=== PATIENT | female | born 1970 | race Hispanic/Latino ===

== ENCOUNTER 2017-04-27 11:36 | Emergency (ER) | payer SELFPAY ==
[2017-04-27 12:08] VITALS: BP 145/102
[2017-04-27 12:55] LABS: Basophils % (Auto) 0.9 % (0.0-1.8); Eosinophils % (Auto) 4.2 % (0.0-4.3); Hematocrit 47.4 % (30.3-42.9); Hemoglobin 15.5 gm/dl (10.1-14.3); Mean Corpuscular HGB Conc 33 % (30-34); Mean Corpuscular Hemoglobin 29 pg (28-32); Mean Corpuscular Volume 89 fl (79-97); Platelet Count 334 K/mm3 (140-440); Red Blood Count 5.35 M/mm3 (3.65-5.03); White Blood Count 11.8 K/mm3 (4.5-11.0)
--- NOTE | 2017-04-27 12:57 | Emergency Department Report ---
Entered by BASHIR SILVA, acting as scribe for GIL RODRIGUEZ PA. Chief Complaint: Chest Pain Stated Complaint: FEVER/PAIN UNDER RT RIB CAGE Time Seen by Provider: 04/27/17 12:28 - HPI History of Present Illness: Patient c/o throbbing and aching RUQ abdominal sided for 1 week. Patient states her pain radiated to right lower back 6 days ago, but states the pain hasn't radiated since. Notes Hx of similar pain, and she was diagnosed with kidney stones one time and a stomach ulcer another time. Pain is alleviated with applying pressure. Aggravated with eating. Reports fever. Denies any trauma/injury. Denies chest pain and SOB. Allergic to sulfa. - ROS Review of Systems: All systems are negative unless stated in the HPI above. - Exam Vital Signs: Vital Signs 04/27/17 12:05 Temperature 98.5 F Pulse Rate 104 H Respiratory 18 Rate Blood Pressure 145/102 O2 Sat by Pulse 100 Oximetry Physical Exam: GENERAL: Patient is alert and oriented x 3. No apparent distress, normal gait, atraumatic. LUNGS: Symmetrical with respiration. No wheezing, rales or crackles, CTAB. HEART: Regular rate and rhythm with normal S1/S2 present. No murmurs, rubs, or gallops. Abdomen: Soft. No guarding or rebound. RUQ tenderness present. MSE screening note: Focused history and physical exam performed. Due to findings the following was ordered: ED Medical Decision Making - EKG Data EKG shows normal: sinus rhythm Rate: normal - EKG Data When compared to previous EKG there are: no significant change Interpretation: no acute changes, normal EKG - Medical Decision Making Patient screened by provider in triage area. Labs and US of abdomen ordered and sent in for patient. Patient sent to be seen by MD on main ED side. ED Disposition for MSE Condition: Stable This documentation as recorded by the scribe,BASHIR SILVA,accurately reflects the service I personally performed and the decisions made by JENNIFER cleaning OYINLOLA A, PA.
[2017-04-27 13:17] LABS: Alanine Aminotransferase 31 units/L (7-56); Albumin 4.4 g/dL (3.9-5); Albumin/Globulin Ratio 1.3 %; Alkaline Phosphatase 132 units/L (35-129); BUN/Creatinine Ratio 16.66; Blood Urea Nitrogen 10 mg/dL (7-17); Calcium 9.5 mg/dL (8.4-10.2); Carbon Dioxide 24 mmol/L (22-30); Glucose 313 mg/dL (65-100); Lipase 16 units/L (13-60); Total Protein 7.7 g/dL (6.3-8.2)
[2017-04-27 13:18] LABS: Anion Gap 21 mmol/L; Chloride 95.4 mmol/L (98-107); Sodium 136 mmol/L (137-145)
--- NOTE | 2017-04-27 14:22 | Ultrasound Report ---
ULTRASOUND ABDOMEN COMPLETE INDICATION: Right upper quadrant pain. COMPARISON: March 2015. FINDINGS: Abdominal sonography demonstrates diffuse hepatic echogenic coarsening with grossly preserved contours. No definite focal suspicious lesions or biliary dilatation, to the extent assessed. Right hepatic lobe approximately 21 cm in midclavicular length. No gallstones or pericholecystic fluid. Gallbladder wall thickness is 2 mm. Mild pericholecystic fatty sparing. Common bile duct is 7 mm. Homogenous spleen, approximately 10.4 cm in length. No ascites. Imaged pancreas grossly unremarkable, though distal body and tail obscured due to bowel gas. Normal IVC and imaged abdominal aorta. No hydronephrosis. Right kidney is 11.3 x 4.7 x 5 cm with cortical thickness of 1.6 cm. Left kidney is 11.1 x 6.9 x 5.3 cm with cortical thickness of 1.6 cm. Known 5 mm nonobstructing left lower renal calculus not well appreciated sonographically. CONCLUSION: Moderate to severe fatty enlarged liver again noted, as above. Thank you for the opportunity to participate in this patient's care.
[2017-04-27 15:05] LABS: Bacteria,Urine 1+ /HPF (Negative); Mucus,Urine FEW /HPF; WBC,Urine < 1.0 /HPF (0.0-6.0)
[2017-04-27 15:13] LABS: Bilirubin,Urine Negative (Negative); Blood,Urine Moderate (Negative); Ketones,Urine Negative (Negative); Nitrite,Urine Negative (Negative); Protein,Urine <15 mg/dL mg/dL (Negative); Urobilinogen,Urine < 0.2 mg/dL (<2.0)
[2017-04-27 15:14] LABS: Leukocyte Esterase,Urine Negative (Negative)
== END 2017-04-27 20:45 | disposition left against medical advice (07) ==
LOC: ED 11:36
DX: R10.11 Right upper quadrant pain (principal); Z53.21 Procedure and treatment not carried out due to patient leaving prior to being seen by health care provider
CPT/HCPCS: 36415; 76700; 80053; 81001; 83690; 84703; 85025; 93005; 93010

== ENCOUNTER 2019-07-16 15:53 | Inpatient (IN) | payer SELFPAY ==
--- NOTE | 2019-07-16 16:09 | Event Note ---
ED Screening Note Date of service: 07/16/19 Time: 16:05 ED Screening Note: This is a 49 y.o. F. that presents to the ER with dysuria, bilateral flank pain, and urinary frequency x 1 week. Patient went to PCP last week and started on amoxicillin for UTI. Reports increasing pain and dysuria with use of antibiotics. Current smoker Reports increasing SOB for weeks. This initial assessment/diagnostic orders/clinical plan/treatment(s) is/are subject to change based on patients health status, clinical progression and re- assessment by fellow clinical providers in the ED. Further treatment and workup at subsequent clinical providers discretion. Patient/guardian urged not to elope from the ED as their condition may be serious if not clinically assessed and managed. Initial orders include: Labs, CT of abdomen, and CXR
[2019-07-16] MEDS ORDERED: SODIUM CHLORIDE 0.9% 1000 ML 1,000 ML IV ONE (16:34)
[2019-07-16] MEDS ORDERED: IPRATROPIUM/ALBUTEROL SULFATE 3 ML AMPUL.NEB IH ONE (16:46)
[2019-07-16 16:56] LABS: Basophils # (Auto) 0.2 K/mm3 (0.0-0.1); Eosinophils # (Auto) 1.4 K/mm3 (0.0-0.4); Eosinophils % (Auto) 8.1 % (0.0-4.3); Hematocrit 44.4 % (30.3-42.9); Hemoglobin 14.4 gm/dl (10.1-14.3); Lymphocytes % (Auto) 22.8 % (13.4-35.0); Mean Corpuscular HGB Conc 32 % (30-34); Mean Corpuscular Volume 91 fl (79-97); Monocytes # (Auto) 1.3 K/mm3 (0.0-0.8); Monocytes % (Auto) 7.2 % (0.0-7.3); Platelet Count 338 K/mm3 (140-440); Red Blood Count 4.88 M/mm3 (3.65-5.03); Red Cell Distribution Width 12.8 % (13.2-15.2)
--- NOTE | 2019-07-16 16:56 | Emergency Department Report ---
ED General Adult HPI - General Chief complaint: Abdominal Pain Stated complaint: STOMACH PAIN/POSSIBLE KIDNEY PAIN Time Seen by Provider: 07/16/19 16:05 Source: patient Mode of arrival: Ambulatory Limitations: No Limitations - History of Present Illness Initial comments: This is a 49-year-old female not previously diagnosed with COPD with no history of venous thromboembolism presented to the emergency Department possibly for bilateral posterior chest pain. She states that she went to her primary care physician who prescribed amoxicillin for a UTI. However, she describes the pain as being quite superior to the flank area in the bilateral lower thoracic region. She states that she has been coughing very chronically. She admits to dyspnea on exertion. She states that she works at [employer]. She states she has been working recently. She is a daily and heavy smoker. He does complain of some urinary frequency and she states which has gotten worse since she took the amoxicillin. She also states that she is a type II diabetic. The doctor did a Accu-Chek test which she reports to be less than 200 at the office last week. She did notice prior to her arrival and sometimes in the past that her lips were blue. She doesn't really report any acute respiratory compromise. Patient lists no history of cardiac problems. She recalls that she was checked for blood clots in her legs once presumably with the Doppler. This test was negative. She doesn't report a family history of venous thromboembolic embolism either. -: Gradual, month(s) (dyspnea on exertion and chronic cough for months if not years) Location: chest (posterior thoracic pain) Radiation: non-radiation Severity scale (0 -10): 8 Quality: aching Consistency: intermittent Improves with: none Associated Symptoms: other (urinary frequency) Treatments Prior to Arrival: none - Related Data Home Medications Medication Instructions Recorded Confirmed Last Taken Citalopram [Celexa] 40 mg PO QDAY 11/26/13 07/16/19 11/26/13 Oxycodone HCl/Acetaminophen 10 mg PO PRN PRN 11/26/13 07/16/19 11/26/13 [Percocet 10/325 mg] clonazePAM [KlonoPIN] 0.5 mg PO BID PRN 11/26/13 07/16/19 11/26/13 Previous Rx's Medication Instructions Recorded Last Taken Type Oxycodone HCl/Acetaminophen 1 each PO Q6HR PRN #20 tablet 03/25/15 Unknown Rx [Percocet 10-325 mg] Allergies Allergy/AdvReac Type Severity Reaction Status Date / Time ciprofloxacin Allergy Unknown Verified 07/16/19 16:08 Sulfa (Sulfonamide Allergy Hives Verified 07/16/19 16:08 Antibiotics) ED Review of Systems ROS: Stated complaint: STOMACH PAIN/POSSIBLE KIDNEY PAIN Other details as noted in HPI Constitutional: denies: chills, fever Eyes: denies: eye pain, eye discharge, vision change ENT: denies: ear pain, throat pain Respiratory: cough, shortness of breath. denies: wheezing Cardiovascular: as per HPI, chest pain. denies: palpitations Endocrine: no symptoms reported Gastrointestinal: denies: abdominal pain, nausea, diarrhea Genitourinary: denies: urgency, dysuria, discharge Musculoskeletal: denies: back pain, joint swelling, arthralgia Skin: denies: rash, lesions Neurological: denies: headache, weakness, paresthesias Psychiatric: denies: anxiety, depression Hematological/Lymphatic: denies: easy bleeding, easy bruising ED Past Medical Hx - Past Medical History Hx Hypertension: Yes Hx Diabetes: Yes Hx Kidney Stones: Yes Hx Psychiatric Treatment: Yes (depression) Additional medical history: kidney stones - Surgical History Additional Surgical History: brain surgery 1971 after trauma. sacral screw placed 2006 - Social History Smoking Status: Current Every Day Smoker Substance Use Type: None - Medications Home Medications: Home Medications Medication Instructions Recorded Confirmed Last Taken Type Citalopram [Celexa] 40 mg PO QDAY 11/26/13 07/16/19 11/26/13 History Oxycodone HCl/Acetaminophen 10 mg PO PRN PRN 11/26/13 07/16/19 11/26/13 History [Percocet 10/325 mg] clonazePAM [KlonoPIN] 0.5 mg PO BID PRN 11/26/13 07/16/19 11/26/13 History Oxycodone HCl/Acetaminophen 1 each PO Q6HR PRN #20 tablet 03/25/15 07/16/19 Unknown Rx [Percocet 10-325 mg] ED Physical Exam - General Limitations: No Limitations General appearance: alert, in no apparent distress, other (initially dusky) - Head Head exam: Present: atraumatic, normocephalic - Eye Eye exam: Present: normal appearance. Absent: scleral icterus - ENT ENT exam: Present: mucous membranes moist - Neck Neck exam: Present: normal inspection - Respiratory Respiratory exam: Present: rales (basilar rales noted left greater than right). Absent: respiratory distress - Cardiovascular Cardiovascular Exam: Present: normal rhythm, tachycardia. Absent: systolic murmur, diastolic murmur, rubs, gallop - GI/Abdominal GI/Abdominal exam: Present: soft, normal bowel sounds. Absent: distended, tenderness, guarding, rebound, rigid - Extremities Exam Extremities exam: Present: normal inspection, normal capillary refill. Absent: pedal edema, joint swelling, calf tenderness - Back Exam Back exam: Present: normal inspection - Neurological Exam Neurological exam: Present: alert, oriented X3, CN II-XII intact. Absent: motor sensory deficit - Psychiatric Psychiatric exam: Present: normal affect, normal mood - Skin Skin exam: Present: warm, dry, intact, normal color. Absent: rash ED Course Vital Signs 07/16/19 07/16/19 07/16/19 16:05 17:19 19:15 Temperature 98.2 F 98.2 F Pulse Rate 118 H 89 Pulse Rate [ 74 Right Lower Lobe] Pulse Rate [ 64 Right Middle Lobe] Respiratory 22 17 Rate Respiratory 16 Rate [Right Lower Lobe] Respiratory 16 Rate [Right Middle Lobe] Blood Pressure 153/95 155/95 [right] O2 Sat by Pulse 85 92 Oximetry 07/16/19 19:37 Temperature Pulse Rate Pulse Rate [ Right Lower Lobe] Pulse Rate [ Right Middle Lobe] Respiratory 16 Rate Respiratory Rate [Right Lower Lobe] Respiratory Rate [Right Middle Lobe] Blood Pressure [right] O2 Sat by Pulse Oximetry - Reevaluation(s) Reevaluation #1: Patient was referred to the hospitalist staff for further care and evaluation. 07/16/19 19:47 ED Medical Decision Making - Lab Data Result diagrams: 07/16/19 16:38 07/16/19 16:38 Laboratory Results - last 24 hr 07/16/19 07/16/19 07/16/19 16:30 16:38 16:38 WBC 17.7 H RBC 4.88 Hgb 14.4 H Hct 44.4 H MCV 91 MCH 30 MCHC 32 RDW 12.8 L Plt Count 338 Lymph % (Auto) 22.8 [place] % (Auto) 7.2 Eos % (Auto) 8.1 H Baso % (Auto) 1.0 Lymph # 4.0 Redwood # 1.3 H Eos # 1.4 H Baso # 0.2 H Seg Neutrophils % 60.9 Seg Neutrophils # 10.8 H PT 12.1 L INR 0.92 APTT 24.2 POC Glucose 259 H Laboratory Results - last 24 hr 07/16/19 07/16/19 07/16/19 16:30 16:38 16:38 WBC 17.7 H RBC 4.88 Hgb 14.4 H Hct 44.4 H MCV 91 MCH 30 MCHC 32 RDW 12.8 L Plt Count 338 Lymph % (Auto) 22.8 [place] % (Auto) 7.2 Eos % (Auto) 8.1 H Baso % (Auto) 1.0 Lymph # 4.0 [place] # 1.3 H Eos # 1.4 H Baso # 0.2 H Seg Neutrophils % 60.9 Seg Neutrophils # 10.8 H PT INR APTT POC ABG pH POC ABG pCO2 POC ABG pO2 POC ABG HCO3 POC ABG Total CO2 POC ABG O2 Sat POC ABG Base Excess VBG pH FiO2 Sodium Potassium Chloride Carbon Dioxide Anion Gap BUN Creatinine Estimated GFR BUN/Creatinine Ratio Glucose POC Glucose 259 H Lactic Acid Calcium Total Bilirubin Direct Bilirubin Indirect Bilirubin AST ALT Alkaline Phosphatase Total Protein Albumin Albumin/Globulin Ratio Lipase 24 07/16/19 07/16/19 07/16/19 16:38 16:38 16:38 WBC RBC Hgb Hct MCV MCH MCHC RDW Plt Count Lymph % (Auto) Redwood % (Auto) Eos % (Auto) Baso % (Auto) Lymph # Red[place] # Eos # Baso # Seg Neutrophils % Seg Neutrophils # PT 12.1 L INR 0.92 APTT 24.2 POC ABG pH POC ABG pCO2 POC ABG pO2 POC ABG HCO3 POC ABG Total CO2 POC ABG O2 Sat POC ABG Base Excess VBG pH FiO2 Sodium 136 L Potassium 4.5 Chloride 100.7 Carbon Dioxide 21 L Anion Gap 19 BUN 21 H Creatinine 0.9 Estimated GFR > 60 BUN/Creatinine Ratio 23 Glucose 258 H POC Glucose Lactic Acid 2.10 H* Calcium 10.0 Total Bilirubin 0.30 Direct Bilirubin < 0.2 Indirect Bilirubin 0.1 AST 11 ALT 13 Alkaline Phosphatase 143 H Total Protein 7.8 Albumin 4.4 Albumin/Globulin Ratio 1.3 Lipase 07/16/19 07/16/19 16:38 17:44 WBC RBC Hgb Hct MCV MCH MCHC RDW Plt Count Lymph % (Auto) Red[place] % (Auto) Eos % (Auto) Baso % (Auto) Lymph # [place] # Eos # Baso # Seg Neutrophils % Seg Neutrophils # PT INR APTT POC ABG pH 7.398 POC ABG pCO2 34.6 L POC ABG pO2 167 H POC ABG HCO3 21.3 POC ABG Total CO2 22 POC ABG O2 Sat 100 POC ABG Base Excess -3 VBG pH 7.456 H FiO2 40 Sodium Potassium Chloride Carbon Dioxide Anion Gap BUN Creatinine Estimated GFR BUN/Creatinine Ratio Glucose POC Glucose Lactic Acid Calcium Total Bilirubin Direct Bilirubin Indirect Bilirubin AST ALT Alkaline Phosphatase Total Protein Albumin Albumin/Globulin Ratio Lipase - EKG Data -: EKG Interpreted by Me EKG shows normal: sinus rhythm, axis (axis deviation), intervals, QRS complexes, ST-T waves Rate: normal - EKG Data Interpretation: other (somewhat low voltage) - Radiology Data Radiology results: report reviewed, image reviewed CTA showed no evidence of pulmonary embolism or acute infiltrate Critical Care Time: Yes Critical care time in (mins) excluding proc time.: 60 Critical care attestation.: If time is entered above; I have spent that time in minutes in the direct care of this critically ill patient, excluding procedure time. ED Disposition Clinical Impression: Respiratory failure with hypoxia Qualifiers: Chronicity: acute on chronic Qualified Code(s): J96.21 - Acute and chronic respiratory failure with hypoxia COPD (chronic obstructive pulmonary disease) Qualifiers: COPD type: unspecified COPD Qualified Code(s): J44.9 - Chronic obstructive pulmonary disease, unspecified Disposition: OP ADMIT IP TO THIS HOSP Is pt being admited?: Yes Does the pt Need Aspirin: Yes Condition: Stable Time of Disposition: 19:48
--- NOTE | 2019-07-16 16:59 | XRay Report ---
CHEST 1 VIEW 4:33 PM INDICATION / CLINICAL INFORMATION: SOB. COMPARISON: 11/26/2013. FINDINGS: SUPPORT DEVICES: None. HEART / MEDIASTINUM: The heart size and pulmonary vasculature are normal. The aorta is normal in monserrat eran. LUNGS / PLEURA: No significant pulmonary or pleural abnormality. No pneumothorax. ADDITIONAL FINDINGS: No significant additional findings. IMPRESSION: No acute abnormality or significant change. Signer Name: Ben Marquez MD Signed: 07/16/2019 4:55 PM Workstation Name: [id number]
[2019-07-16 17:06] LABS: INR 0.92 (0.87-1.13)
[2019-07-16 17:07] LABS: Partial Thromboplastin Time 24.2 Sec. (24.2-36.6)
[2019-07-16 17:30] LABS: Alanine Aminotransferase 13 units/L (7-56); Albumin 4.4 g/dL (3.9-5); BUN/Creatinine Ratio 23; Blood Urea Nitrogen 21 mg/dL (7-17); Hemolysis Index 13
[2019-07-16 17:47] LABS: Bilirubin,Direct < 0.2 mg/dL (0-0.2)
[2019-07-16] MEDS ORDERED: cefTRIAXone/NS 1 GM/50 ML 1 GM/50 ML BAG IV ONE (18:10)
[2019-07-16] MEDS ORDERED: ALBUTEROL 2.5 MG/3 ML NEBU IH PRN (18:21)
[2019-07-16] MEDS ORDERED: ACETAMINOPHEN 325 MG TAB PO PRN (18:21)
[2019-07-16] MEDS ORDERED: ONDANSETRON 4 MG/2 ML INJ IV PRN (18:21)
[2019-07-16] MEDS ORDERED: DEXTROSE 50% IN WATER (25GM) 50 ML SYRINGE IV PRN (18:25)
--- NOTE | 2019-07-16 18:27 | Cat Scan Report ---
CT angiography of the chest with intravenous contrast and multiplanar MIP reconstructions INDICATION / CLINICAL INFORMATION: Chest pain and hypoxia. TECHNIQUE: Axial CT images were obtained after injection of 100 cc Omnipaque 350 IV contrast using CTA protocol. 3 plane MIP / 3D reconstructions were produced. All CT scans at this location are performed using CT dose reduction for ALARA by means of automated exposure control. COMPARISON: None available. FINDINGS: There is good opacification of the pulmonary arterial system bilaterally without intraluminal filling defect to suggest acute PTE. The thoracic aorta is normal in caliber without dissection. No coronary artery calcification is seen. The tracheobronchial tree is normal. There is mild right basilar subsegmental atelectasis/dependent a telectasis. The lungs are otherwise clear. There is no evidence of adenopathy or effusion. There is mild benign-appearing low density nodularity/hyperplasia involving the adrenal glands. The v isualized upper abdomen is otherwise normal. No acute osseous abnormality is identified. IMPRESSION: No evidence of acute PTE. Signer Name: Ben Marquez MD Signed: 07/16/2019 6:23 PM Workstation Name: [id number]
[2019-07-16] MEDS ORDERED: clonazePAM 0.5 MG TAB PO PRN (18:28)
[2019-07-16] MEDS ORDERED: ACETAMINOPHEN PO PRN (18:29)
[2019-07-16] MEDS ORDERED: OXYCODONE HCL PO PRN (18:29)
[2019-07-16] MEDS ORDERED: AZITHROMYCIN 500 MG in SODIUM CHLORIDE 0.9% 250ML 250 ML IV ONE (18:30)
[2019-07-16 18:48] LABS: Bilirubin,Urine NEG (Negative); Blood,Urine SM (Negative); Color,Urine Amber (Yellow)
[2019-07-16] MEDS ORDERED: SODIUM CHLORIDE 0.9% 1000 ML 1,000 ML ONE (19:27)
[2019-07-16] MEDS ORDERED: oxyCODONE /ACETAMINOPHEN 5-325MG TAB ONE (19:28)
[2019-07-16] MEDS ORDERED: ONDANSETRON 4 MG/2 ML INJ ONE (19:28)
[2019-07-16] MEDS: SODIUM CHLORIDE 0.9% 1000 ML 1,000 ML IV SCH (19:35)
[2019-07-16] MEDS: oxyCODONE /ACETAMINOPHEN 5-325MG TAB PO PRN (19:37)
--- NOTE | 2019-07-16 19:38 | History and Physical Report ---
History of Present Illness Date of examination: 07/16/19 Date of admission: 07/16/2019 Chief complaint: Shortness of breath and right flank pain History of present illness: 49-year-old female who is an ongoing smoker with history of hypertension noncompliant with meds, diabetes, kidney stones, depression, brain surgery who presents to [facility] ED with complaints of chest pain, dyspnea on exertion , cough with thick sputum production, and right flank pain. Patient states that she was recently diagnosed with urinary tract infection and her PCP prescribed amoxicillin and she has completed treatment. However she continues to have of urinary frequency, occasional dysuria, and right flank pain. She has been taking nioe-hoh-ektwarb AZO for treatment of her symptoms with minimal relief. She admits to being a chain smoker and having a chronic intermittent cough. Over the past week her cough has become more frequent with thick sputum production. She thinks that the cough is contributing to her chest pain. She is also experiencing dyspnea with exertion and wheezing. She denies history of COPD/asthma, or pulmonary workup. 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 sacral screw placed 2006) Social history: , Lives alone, smoking (chain smoker smokes 1-1.5 pack per day) Family history: other (mother COPD, father COPD) Medications and Allergies Allergies Allergy/AdvReac Type Severity Reaction Status Date / Time ciprofloxacin Allergy Unknown Verified 07/16/19 16:08 Sulfa (Sulfonamide Allergy Hives Verified 07/16/19 16:08 Antibiotics) Home Medications Medication Instructions Recorded Confirmed Last Taken Type Citalopram [Celexa] 40 mg PO QDAY 11/26/13 07/16/19 11/26/13 History Oxycodone HCl/Acetaminophen 10 mg PO PRN PRN 11/26/13 07/16/19 11/26/13 History [Percocet 10/325 mg] clonazePAM [KlonoPIN] 0.5 mg PO BID PRN 11/26/13 07/16/19 11/26/13 History Oxycodone HCl/Acetaminophen 1 each PO Q6HR PRN #20 tablet 03/25/15 07/16/19 Unknown Rx [Percocet 10-325 mg] Active Meds: Active Medications Acetaminophen (Tylenol) 650 mg PO Q4H PRN PRN Reason: Pain MILD(1-3)/Fever >100.5/TAVARES Albuterol (Proventil) 2.5 mg IH Q3HRT PRN PRN Reason: Shortness Of Breath Albuterol/Ipratropium (Duoneb *Not For Prn Use*) 1 ampul IH Q6HRT [facility] Budesonide (Pulmicort) 0.5 mg IH Q12HRT [facility] Citalopram Hydrobromide (Celexa) 40 mg PO QDAY [place] Clonazepam (Klonopin) 0.5 mg PO BID PRN PRN Reason: Anxiety Dextrose (D50w (25gm) Syringe) 50 ml IV PRN PRN PRN Reason: Hypoglycemia Docusate Sodium (Colace) 100 mg PO BID [facility] Enoxaparin Sodium (Lovenox) 40 mg SUB-Q QDAY [facility] Guaifenesin (Mucinex Er) 600 mg PO BID [facility] Sodium Chloride (Nacl 0.9% 1000 Ml) 1,000 mls @ 100 mls/hr IV DIRECT [place] Azithromycin 500 mg/ Sodium (Chloride) 250 mls @ 250 mls/hr IV Q24HR [facility]; Protocol Stop: 07/20/19 09:59 Ceftriaxone Sodium (Rocephin/Ns 1 Gm/50 Ml) 1 gm in 50 mls @ 100 mls/hr IV Q24HR [facility]; Protocol Insulin Human Lispro (Humalog) 0 unit SUB-Q ACHS [facility]; Protocol Methylprednisolone Sodium Succinate (Solu-Medrol) 60 mg IV Q8HR [facility] Nicotine (Habitrol) 14 mg TD QDAY [facility] Ondansetron HCl (Zofran) 4 mg IV Q6H PRN PRN Reason: Nausea And Vomiting Oxycodone HCl (Roxicodone) 5 mg PO Q6H PRN PRN Reason: Pain , Severe (7-10) Oxycodone/Acetaminophen (Percocet 5/325) 1 tab PO Q6H PRN PRN Reason: Pain , Severe (7-10) Sodium Chloride (Sodium Chloride Flush Syringe 10 Ml) 10 ml IV BID [facility] Sodium Chloride (Sodium Chloride Flush Syringe 10 Ml) 10 ml IV PRN PRN PRN Reason: LINE FLUSH Review of Systems All systems: negative Cardiovascular: chest pain, shortness of breath Respiratory: cough with sputum, wheezing Genitourinary Female: flank pain, dysuria, urinary frequency Exam - Physical Exam Narrative exam: Physical exam General appearance: Present: Mild distress, alert and oriented 3, well developed, pleasant, adult female - EENT Eyes: Present: PERRL, EOM intact, ENT: hearing intact, normal dentition - Neck Neck: Present: supple, normal ROM - Respiratory Respiratory effort: Slightly labored, on Venti mask Respiratory: Diminished bases - Cardiovascular Heart rate: 118 (bpm) Rhythm: ST Heart Sounds: Present: S1, S2 - Extremities Extremities: no ischemia, pulses intact, - Peripheral Assessment Peripheral Pulses: within normal limits - Abdominal General gastrointestinal: Soft, non-tender, normal bowel sounds - Integumentary Integumentary: Present: warm, dry, - Musculoskeletal Musculoskeletal: Able to move all extremities -Neurological Neurological: CN II-XII grossly intact - Psychiatric Psychiatric: cooperative - Constitutional Vitals: Temp Pulse Resp BP Pulse Ox 98.2 F 89 17 155/95 92 07/16/19 19:15 07/16/19 19:15 07/16/19 19:15 07/16/19 19:15 07/16/19 19:15 Results - Labs CBC & Chem 7: 07/16/19 16:38 07/16/19 16:38 Labs: Laboratory Last Values WBC 17.7 K/mm3 (4.5-11.0) H 07/16/19 16:38 RBC 4.88 M/mm3 (3.65-5.03) 07/16/19 16:38 Hgb 14.4 gm/dl (10.1-14.3) H 07/16/19 16:38 Hct 44.4 % (30.3-42.9) H 07/16/19 16:38 MCV 91 fl (79-97) 07/16/19 16:38 MCH 30 pg (28-32) 07/16/19 16:38 MCHC 32 % (30-34) 07/16/19 16:38 RDW 12.8 % (13.2-15.2) L 07/16/19 16:38 Plt Count 338 K/mm3 (140-440) 07/16/19 16:38 Lymph % (Auto) 22.8 % (13.4-35.0) 07/16/19 16:38 [place] % (Auto) 7.2 % (0.0-7.3) 07/16/19 16:38 Eos % (Auto) 8.1 % (0.0-4.3) H 07/16/19 16:38 Baso % (Auto) 1.0 % (0.0-1.8) 07/16/19 16:38 Lymph # 4.0 K/mm3 (1.2-5.4) 07/16/19 16:38 [place] # 1.3 K/mm3 (0.0-0.8) H 07/16/19 16:38 Eos # 1.4 K/mm3 (0.0-0.4) H 07/16/19 16:38 Baso # 0.2 K/mm3 (0.0-0.1) H 07/16/19 16:38 Seg Neutrophils % 60.9 % (40.0-70.0) 07/16/19 16:38 Seg Neutrophils # 10.8 K/mm3 (1.8-7.7) H 07/16/19 16:38 PT 12.1 Sec. (12.2-14.9) L 07/16/19 16:38 INR 0.92 (0.87-1.13) 07/16/19 16:38 APTT 24.2 Sec. (24.2-36.6) 07/16/19 16:38 POC ABG pH 7.398 (7.35-7.45) 07/16/19 17:44 POC ABG pCO2 34.6 (35-45) L 07/16/19 17:44 POC ABG pO2 167 (80-105) H 07/16/19 17:44 POC ABG HCO3 21.3 (22-26 mml/L) 07/16/19 17:44 POC ABG Total CO2 22 (23-27mmol/L) 07/16/19 17:44 POC ABG O2 Sat 100 07/16/19 17:44 POC ABG Base Excess -3 ((-2) - (+3)mmol/L) 07/16/19 17:44 VBG pH 7.456 (7.320-7.420) H 07/16/19 16:38 40 % 07/16/19 17:44 Sodium 136 mmol/L (137-145) L 07/16/19 16:38 Potassium 4.5 mmol/L (3.6-5.0) 07/16/19 16:38 Chloride 100.7 mmol/L (98-107) 07/16/19 16:38 Carbon Dioxide 21 mmol/L (22-30) L 07/16/19 16:38 19 mmol/L 07/16/19 16:38 BUN 21 mg/dL (7-17) H 07/16/19 16:38 0.9 mg/dL (0.7-1.2) 07/16/19 16:38 Estimated GFR > 60 ml/min 07/16/19 16:38 23 % 07/16/19 16:38 Glucose 258 mg/dL (65-100) H 07/16/19 16:38 POC Glucose 259 (70-105) H 07/16/19 16:30 Lactic Acid 2.10 mmol/L (0.7-2.0) H* 07/16/19 18:02 Calcium 10.0 mg/dL (8.4-10.2) 07/16/19 16:38 0.30 mg/dL (0.1-1.2) 07/16/19 16:38 < 0.2 mg/dL (0-0.2) 07/16/19 16:38 0.1 mg/dL 07/16/19 16:38 AST 11 units/L (5-40) 07/16/19 16:38 ALT 13 units/L (7-56) 07/16/19 16:38 143 units/L (35-129) H 07/16/19 16:38 27 units/L (30-135) L 07/16/19 16:57 CK-MB (CK-2) 1.0 ng/mL (0.0-4.0) 07/16/19 16:57 CK-MB (CK-2) Rel Index 3.7 (0-4) 07/16/19 16:57 NT-Pro-B Natriuret Pep 11.03 pg/mL (0-900) 07/16/19 16:57 7.8 g/dL (6.3-8.2) 07/16/19 16:38 4.4 g/dL (3.9-5) 07/16/19 16:38 1.3 % 07/16/19 16:38 24 units/L (13-60) 07/16/19 16:38 Mere (Yellow) 07/16/19 18:24 Clear (Clear) 07/16/19 18:24 5.0 (5.0-7.0) 07/16/19 18:24 Ur Specific [place] 1.014 (1.003-1.030) 07/16/19 18:24 30 mg/dl mg/dL (Negative) 07/16/19 18:24 Neg mg/dL (Negative) 07/16/19 18:24 Neg mg/dL (Negative) 07/16/19 18:24 Sm (Negative) 07/16/19 18:24 Pos (Negative) 07/16/19 18:24 Neg (Negative) 07/16/19 18:24 4.0 mg/dL (<2.0) 07/16/19 18:24 Ur Leukocyte Esterase Neg (Negative) 07/16/19 18:24 4.0 /HPF (0.0-6.0) 07/16/19 18:24 4.0 /HPF (0.0-6.0) 07/16/19 18:24 U Epithel Cells (Auto) 3.0 /HPF (0-13.0) 07/16/19 18:24 - Imaging and Cardiology Imaging and Cardiology: CXR: FINDINGS: SUPPORT DEVICES: None. HEART / MEDIASTINUM: The heart size and pulmonary vasculature are normal. The aorta is normal in caliber. LUNGS / PLEURA: No significant pulmonary or pleural abnormality. No pneumothorax. ADDITIONAL FINDINGS: No significant additional findings. IMPRESSION: No acute abnormality or significant change. CTangio Chest: FINDINGS: There is good opacification of the pulmonary arterial system bilaterally without intraluminal filling defect to suggest acute PTE. The thoracic aorta is normal in caliber without dissection. No coronary artery calcification is seen. The tracheobronchial tree is normal. There is mild right basilar subsegmental atelectasis/dependent atelectasis. The lungs are otherwise clear. There is no evidence of adenopathy or effusion. There is mild benign-appearing low density nodularity/hyperplasia involving the adrenal glands. The visualized upper abdomen is otherwise normal. No acute osseous abnormality is identified. IMPRESSION: No evidence of acute PTE. Assessment and Plan Assessment and plan: 49-year-old female who is an ongoing smoker with history of hypertension noncompliant with meds, diabetes, kidney stones, depression, brain surgery who presents to [facility] ET with complaints of chest pain, shortness of breath on exertion , cough with thick sputum production, and right flank pain. Pt states that she had BLE Doppler in the past to check for DVT and it was negative. Given pt's complaints and history CT angio chest was done and it was negative for PE. CXR was negative for acute pulmonary abnormalities. Acute exacerbation COPD -New diagnosis -Scheduled DuoNebs and Pulmicort, and Albuterol PRN -IV Systemic steriods -Mucinex -On IV ABX -Will require outpatient follow-up with supervisor [facility] for PFTs and COPD maintenance Acute hypoxic respiratory failure -No Baseline home oxygen requirements -Currently on Ventimask FiO2 40%, 15 LPM -Monitor saturations -Monitor CO2 -Continue supplemental oxygen wean as tolerated Suspicion of Kidney stone -Patient has history of kidney stone -Complains of right flank pain -Receiving IVF -Continue supportive care -If no improvement in symptoms after 24 hours of hydration may consider nephrology consult History of UTI -Previously treated with azithromycin as outpatient -UA negative -Urine culture pending -On IV abx HTN -Noncompliant with medications due to lack of insurance -Monitor BP -Start Norvac 10mg -IV hydralazine when necessary Lactic Acidosis -lactic acid on admission 2.10 -On IV ABX -Receiving IVF -Continue to monitor DM2 -With hyperglycemia -BG on admission 258 -HgbA1c pending -SSI coverage and scheduled Lantus Tobacco abuse -Smokes 1-1.5 pack per day -Counseled for cessation -Nicotine patch when necessary DVT PPX -on Lovenox Advance Directives: No VTE prophylaxis?: Chemical Plan of care discussed with patient/family: Yes
[2019-07-16] MEDS ORDERED: hydrALAZINE 20 MG/1 ML INJ IV PRN (19:49)
[2019-07-16] MEDS: NICOTINE 14 MG/24 HR PATCH TD SCH (19:58)
[2019-07-16] MEDS ORDERED: amLODIPine 10 MG TAB PO ONE (20:00)
[2019-07-16] MEDS ORDERED: amLODIPine 10 MG TAB ONE (20:04)
[2019-07-16] MEDS ORDERED: ASPIRIN 325 MG TAB ONE (20:04)
[2019-07-16] MEDS: ASPIRIN 325 MG TAB PO SCH (20:05)
[2019-07-16] MEDS: BUDESONIDE 0.5 MG/2 ML NEBU IH SCH (20:53)
[2019-07-16] MEDS: IPRATROPIUM/ALBUTEROL SULFATE 3 ML AMPUL.NEB IH SCH (20:53)
[2019-07-16] MEDS: methylPREDNISolone Sod Succinate 125 MG/2 ML INJ IV SCH (22:47)
[2019-07-16] MEDS: DOCUSATE SODIUM 100 MG CAP PO SCH (22:47)
[2019-07-16] MEDS: guaiFENesin ER 600 MG TAB PO SCH (22:47)
[2019-07-16] MEDS: PRAVASTATIN 20 MG TAB PO SCH (22:47)
[2019-07-16] MEDS: INSULIN GLARGINE 100 UNITS/ML SUB-Q SCH (22:48)
[2019-07-16] MEDS: INSULIN LISPRO 100 UNIT/ML SUB-Q SCH (22:49)
[2019-07-16] MEDS: MORPHINE 2 MG/1 ML INJ IV PRN (23:18)
[2019-07-17] MEDS: IPRATROPIUM/ALBUTEROL SULFATE 3 ML AMPUL.NEB IH SCH ×4 (03:09→19:46)
[2019-07-17] MEDS: SODIUM CHLORIDE 0.9% 1000 ML 1,000 ML IV SCH ×2 (05:24→17:38)
[2019-07-17] MEDS: MORPHINE 2 MG/1 ML INJ IV PRN (05:25)
[2019-07-17] MEDS: methylPREDNISolone Sod Succinate 125 MG/2 ML INJ IV SCH ×3 (05:25→21:52)
--- NOTE | 2019-07-17 06:58 | Progress Note ---
Assessment and Plan Assessment and plan: Patient is a 49-year-old woman with a history of tobacco dependency, hypertension noncompliant with meds, diabetes, kidney stones, depression and brain surgery who presented to [facility] ED with chest pains, dyspnea on exertion, cough with thick sputum production, and right flank pain. Patient states that she was recently diagnosed with urinary tract infection and her PCP prescribed amoxicillin and she has completed treatment. However she continues to have of urinary frequency, occasional dysuria, and right flank pain. She has been taking [id number] AZO for treatment of her symptoms with minimal relief. She admits to being a chain smoker and having a chronic intermittent cough. Over the past week her cough has become more frequent with thick sputum production. She thinks that the cough is contributing to her chest pain. She is also experiencing dyspnea with exertion and wheezing. She denies history of COPD/asthma, or pulmonary workup. * pCXR IMPRESSION: No acute abnormality or significant change. * CTangio Chest IMPRESSION: No evidence of acute PTE. suspected Acute exacerbation COPD vs Asthmatic bronchitis -New diagnosis -Scheduled DuoNebs and Pulmicort, and Albuterol PRN -IV Systemic steriods -Mucinex -On IV ABX -Will require outpatient follow-up with spin instructor for PFTs and COPD official dx Acute hypoxic respiratory failure -No Baseline home oxygen requirements -Currently on Ventimask FiO2 40%, 15 LPM -Monitor saturations -Monitor CO2 -Continue supplemental oxygen wean as tolerated Suspicion of Kidney stone -get CT a/p -Patient has history of kidney stone -Complains of right flank pain -Receiving IVF -Continue supportive care -If no improvement in symptoms after 24 hours of hydration may consider Urology consult History of UTI -Previously treated with azithromycin as outpatient -UA negative -Urine culture pending -On IV abx HTN -Noncompliant with medications due to lack of insurance -Monitor BP -Start Norvac 10mg ([facility]) -IV hydralazine when necessary Lactic Acidosis -lactic acid on admission 2.10 -On IV ABX -Receiving IVF -Continue to monitor DM2 -With hyperglycemia -BG on admission 258 -HgbA1c 8.1 -SSI coverage and scheduled Lantus Tobacco abuse -Smokes 1-1.5 pack per day -Counseled for cessation 3-10 minutes done -Nicotine patch when necessary DVT PPX -on Lovenox History Interval history: Patient was seen and examined. Follow-up on current diagnosis COPD vs Asthmatic bronchitis. No overnight events reported to me. Patient denies any nausea/vomiting or severe headaches. Imaging, nursing note, chart, labs and old chart reviewed. Discussed with patient. Hospitalist Physical - Physical exam Narrative exam: Gen: WDWN, NAD, Awake, Alert, Orientated HEENT: NCAT, EOMI, PERRL, OP Clear Neck: supple, no adenopathy, no thyromegaly, no JVD CVS/Heart: RRR, normal S1S2, pulses present bilaterally Chest/Lungs: diminished and exp wheezing bilateral, Symmetrical chest expansion, good air entry bilaterally GI/Abdomen: soft, NTND, good bowel sounds, no guarding or rebound /Bladder: no suprapubic tenderness, no CVA or paraspinal tenderness Extermity/Skin: no c/c/e, no obvious rash MSK: FROM x 4 Neuro: CN 2-12 grossly intact, no new focal deficits Psych: calm - Constitutional Vitals: Temp Pulse Resp BP Pulse Ox 98.4 F 98 H 18 102/57 91 07/17/19 04:45 07/17/19 04:45 07/17/19 05:55 07/17/19 04:45 07/17/19 04:45 Results - Labs CBC & Chem 7: 07/17/19 07:11 07/17/19 07:11 Labs: Laboratory Last Values WBC 17.7 K/mm3 (4.5-11.0) H 07/16/19 16:38 RBC 4.88 M/mm3 (3.65-5.03) 07/16/19 16:38 Hgb 14.4 gm/dl (10.1-14.3) H 07/16/19 16:38 Hct 44.4 % (30.3-42.9) H 07/16/19 16:38 MCV 91 fl (79-97) 07/16/19 16:38 MCH 30 pg (28-32) 07/16/19 16:38 MCHC 32 % (30-34) 07/16/19 16:38 RDW 12.8 % (13.2-15.2) L 07/16/19 16:38 Plt Count 338 K/mm3 (140-440) 07/16/19 16:38 Lymph % (Auto) 22.8 % (13.4-35.0) 07/16/19 16:38 [place] % (Auto) 7.2 % (0.0-7.3) 07/16/19 16:38 Eos % (Auto) 8.1 % (0.0-4.3) H 07/16/19 16:38 Baso % (Auto) 1.0 % (0.0-1.8) 07/16/19 16:38 Lymph # 4.0 K/mm3 (1.2-5.4) 07/16/19 16:38 [place] # 1.3 K/mm3 (0.0-0.8) H 07/16/19 16:38 Eos # 1.4 K/mm3 (0.0-0.4) H 07/16/19 16:38 Baso # 0.2 K/mm3 (0.0-0.1) H 07/16/19 16:38 Seg Neutrophils % 60.9 % (40.0-70.0) 07/16/19 16:38 Seg Neutrophils # 10.8 K/mm3 (1.8-7.7) H 07/16/19 16:38 PT 12.1 Sec. (12.2-14.9) L 07/16/19 16:38 INR 0.92 (0.87-1.13) 07/16/19 16:38 APTT 24.2 Sec. (24.2-36.6) 07/16/19 16:38 POC ABG pH 7.398 (7.35-7.45) 07/16/19 17:44 POC ABG pCO2 34.6 (35-45) L 07/16/19 17:44 POC ABG pO2 167 (80-105) H 07/16/19 17:44 POC ABG HCO3 21.3 (22-26 mml/L) 07/16/19 17:44 POC ABG Total CO2 22 (23-27mmol/L) 07/16/19 17:44 POC ABG O2 Sat 100 07/16/19 17:44 POC ABG Base Excess -3 ((-2) - (+3)mmol/L) 07/16/19 17:44 VBG pH 7.456 (7.320-7.420) H 07/16/19 16:38 40 % 07/16/19 17:44 Sodium 136 mmol/L (137-145) L 07/16/19 16:38 Potassium 4.5 mmol/L (3.6-5.0) 07/16/19 16:38 Chloride 100.7 mmol/L (98-107) 07/16/19 16:38 Carbon Dioxide 21 mmol/L (22-30) L 07/16/19 16:38 19 mmol/L 07/16/19 16:38 BUN 21 mg/dL (7-17) H 07/16/19 16:38 0.9 mg/dL (0.7-1.2) 07/16/19 16:38 Estimated GFR > 60 ml/min 07/16/19 16:38 23 % 07/16/19 16:38 Glucose 258 mg/dL (65-100) H 07/16/19 16:38 POC Glucose 213 (70-105) H 07/16/19 21:28 8.1 % (4-6) H 07/16/19 19:20 Lactic Acid 1.50 mmol/L (0.7-2.0) 07/16/19 20:19 Calcium 10.0 mg/dL (8.4-10.2) 07/16/19 16:38 0.30 mg/dL (0.1-1.2) 07/16/19 16:38 < 0.2 mg/dL (0-0.2) 07/16/19 16:38 0.1 mg/dL 07/16/19 16:38 AST 11 units/L (5-40) 07/16/19 16:38 ALT 13 units/L (7-56) 07/16/19 16:38 143 units/L (35-129) H 07/16/19 16:38 27 units/L (30-135) L 07/16/19 16:57 CK-MB (CK-2) 1.0 ng/mL (0.0-4.0) 07/16/19 16:57 CK-MB (CK-2) Rel Index 3.7 (0-4) 07/16/19 16:57 NT-Pro-B Natriuret Pep 11.03 pg/mL (0-900) 07/16/19 16:57 7.8 g/dL (6.3-8.2) 07/16/19 16:38 4.4 g/dL (3.9-5) 07/16/19 16:38 1.3 % 07/16/19 16:38 24 units/L (13-60) 07/16/19 16:38 Mere (Yellow) 07/16/19 18:24 Clear (Clear) 07/16/19 18:24 5.0 (5.0-7.0) 07/16/19 18:24 Ur Specific [place] 1.014 (1.003-1.030) 07/16/19 18:24 30 mg/dl mg/dL (Negative) 07/16/19 18:24 Neg mg/dL (Negative) 07/16/19 18:24 Neg mg/dL (Negative) 07/16/19 18:24 Sm (Negative) 07/16/19 18:24 Pos (Negative) 07/16/19 18:24 Neg (Negative) 07/16/19 18:24 4.0 mg/dL (<2.0) 07/16/19 18:24 Ur Leukocyte Esterase Neg (Negative) 07/16/19 18:24 4.0 /HPF (0.0-6.0) 07/16/19 18:24 4.0 /HPF (0.0-6.0) 07/16/19 18:24 U Epithel Cells (Auto) 3.0 /HPF (0-13.0) 07/16/19 18:24 Active Medications - Current Medications Current Medications: Generic Name Dose Route Start Last Admin Trade Name Freq PRN Reason Stop Dose Admin Acetaminophen 650 mg 07/16/19 18:21 Tylenol PO Q4H PRN Pain MILD(1-3)/Fever >100.5/TAVARES Albuterol 2.5 mg 07/16/19 18:21 Proventil IH Q3HRT PRN Shortness Of Breath Albuterol/Ipratropium 1 ampul 07/16/19 20:00 07/17/19 03:09 Duoneb *Not For Prn Use* IH 1 ampul Q6HRT [facility]SANA Administration Aspirin 325 mg 07/16/19 20:00 07/16/19 20:05 Aspirin PO 325 mg QDAY [facility]NA Administration Budesonide 0.5 mg 07/16/19 20:00 07/16/19 20:53 Pulmicort IH 0.5 mg Q12HRT [facility] Administration Citalopram Hydrobromide 40 mg 07/17/19 10:00 Celexa PO QDAY [facility] Clonazepam 0.5 mg 07/16/19 18:28 Klonopin PO BID PRN Anxiety Dextrose 50 ml 07/16/19 18:25 D50w (25gm) Syringe IV PRN PRN Hypoglycemia Docusate Sodium 100 mg 07/16/19 22:00 07/16/19 22:47 Colace PO 100 mg BID OKSANA Administration Enoxaparin Sodium 40 mg 07/17/19 10:00 Lovenox SUB-Q QDAY [facility] Guaifenesin 600 mg 07/16/19 22:00 07/16/19 22:47 Mucinex Er PO 600 mg BID [facility]SANA Administration Hydralazine HCl 10 mg 07/16/19 19:49 Apresoline IV Q4H PRN Blood Pressure Sodium Chloride 1,000 mls @ 100 mls/hr 07/16/19 19:00 07/17/19 05:24 Nacl 0.9% 1000 Ml IV 100 mls/hr DIRECT OKSANA Administration Azithromycin 500 mg/ Sodium 250 mls @ 250 mls/hr 07/17/19 10:00 Chloride IV 07/20/19 09:59 Q24HR [facility] Protocol Ceftriaxone Sodium 1 gm in 50 mls @ 100 mls/hr 07/17/19 10:00 Rocephin/Ns 1 Gm/50 Ml IV Q24HR [facility] Protocol Insulin Glargine 10 units 07/16/19 22:00 07/16/19 22:48 Lantus SUB-Q 10 units QHS OKSANA Administration Insulin Human Lispro 0 unit 07/16/19 22:00 07/16/19 22:49 Humalog SUB-Q 3 unit ACHS OKSANA Administration Protocol Methylprednisolone Sodium Succinate 60 mg 07/16/19 22:00 07/17/19 05:25 Solu-Medrol IV 60 mg Q8HR [facility] Administration Morphine Sulfate 2 mg 07/16/19 22:13 07/17/19 05:25 Morphine IV 2 mg Q4H PRN Administration Pain, Moderate (4-6) Nicotine 14 mg 07/16/19 19:00 07/16/19 19:58 Habitrol TD 14 mg QDAY [facility] Administration Ondansetron HCl 4 mg 07/16/19 18:21 07/16/19 19:35 Zofran IV 4 mg Q6H PRN Administration Nausea And Vomiting Oxycodone HCl 5 mg 07/16/19 18:50 Roxicodone PO Q6H PRN Pain , Severe (7-10) Oxycodone/Acetaminophen 1 tab 07/16/19 18:49 07/16/19 19:37 Percocet 5/325 PO 1 tab Q6H PRN Administration Pain , Severe (7-10) Pravastatin Sodium 20 mg 07/16/19 22:00 07/16/19 22:47 Pravachol PO 20 mg QHS OKSANA Administration Sodium Chloride 10 ml 07/16/19 22:00 07/16/19 22:48 Sodium Chloride Flush Syringe 10 Ml IV 10 ml BID OKSANA Administration Sodium Chloride 10 ml 07/16/19 18:21 Sodium Chloride Flush Syringe 10 Ml IV PRN PRN LINE FLUSH
[2019-07-17] MEDS: BUDESONIDE 0.5 MG/2 ML NEBU IH SCH ×2 (07:25→19:46)
[2019-07-17 07:56] LABS: Basophils % (Auto) 0.3 % (0.0-1.8); Eosinophils % (Auto) 0.1 % (0.0-4.3); Hematocrit 39.1 % (30.3-42.9); Hemoglobin 12.5 gm/dl (10.1-14.3); Lymphocytes # (Auto) 1.3 K/mm3 (1.2-5.4); Lymphocytes % (Auto) 11.7 % (13.4-35.0); Mean Corpuscular HGB Conc 32 % (30-34); Mean Corpuscular Volume 93 fl (79-97); Monocytes # (Auto) 0.1 K/mm3 (0.0-0.8); Monocytes % (Auto) 0.7 % (0.0-7.3); Platelet Count 342 K/mm3 (140-440); Red Blood Count 4.23 M/mm3 (3.65-5.03); Red Cell Distribution Width 12.9 % (13.2-15.2)
[2019-07-17 08:03] LABS: BUN/Creatinine Ratio 30; Blood Urea Nitrogen 24 mg/dL (7-17); Calcium 8.9 mg/dL (8.4-10.2); Hemolysis Index 84
[2019-07-17] MEDS: INSULIN LISPRO 100 UNIT/ML SUB-Q SCH ×4 (08:29→21:51)
[2019-07-17] MEDS: oxyCODONE /ACETAMINOPHEN 5-325MG TAB PO PRN ×3 (08:38→23:34)
[2019-07-17] MEDS: oxyCODONE 5 MG TAB PO PRN ×3 (08:38→23:34)
[2019-07-17] MEDS: CITALOPRAM 20 MG TAB PO SCH (09:49)
[2019-07-17] MEDS: DOCUSATE SODIUM 100 MG CAP PO SCH ×2 (09:50→21:53)
[2019-07-17] MEDS: ENOXAPARIN 40 MG/0.4 ML INJ SUB-Q SCH (09:51)
[2019-07-17] MEDS: NICOTINE 14 MG/24 HR PATCH TD SCH (09:51)
[2019-07-17] MEDS: guaiFENesin ER 600 MG TAB PO SCH ×2 (09:51→21:53)
[2019-07-17] MEDS: cefTRIAXone/NS 1 GM/50 ML 1 GM/50 ML BAG IV SCH (09:51)
[2019-07-17] MEDS: ASPIRIN 325 MG TAB PO SCH (09:59)
[2019-07-17] MEDS: AZITHROMYCIN 500 MG in SODIUM CHLORIDE 0.9% 250ML 250 ML IV SCH (10:40)
--- NOTE | 2019-07-17 11:57 | Cat Scan Report ---
CT of the abdomen and pelvis without contrast INDICATION / CLINICAL INFORMATION: Left abdominal pain. TECHNIQUE: All CT scans at this location are performed using CT dose reduction for ALARA by means of automated e xposure control. COMPARISON: CT of the abdomen and pelvis 03/25/2015 and CTA of the chest yesterday. FINDINGS: ABDOMEN: There is residual contrast throughout the renal cortices from yesterday's CTA. The distribut ion is markedly inhomogeneous and striated in appearance however. There is a 1 cm ovoid calculus in t he left renal pelvis which is nonobstructive. There is no evidence of hydronephrosis, renal mass or p erirenal fluid collection. There is vicarious excretion of contrast by the gallbladder. The liver, spleen, bile ducts, pancreas and bowel are normal. There is diffuse benign-appearing low d ensity nodularity/hyperplasia of the adrenal glands. PELVIS: The distal ureters and urinary bladder are normal. The uterus and adnexal regions are unremar kable. A normal appendix is present and there is no evidence of diverticulitis. No abnormal mass or f luid collection is seen. I do not identify a hernia. There is internal fixation of the left SI joint. Lower lumbar spondylosis is present. IMPRESSION: 1. Retained contrast in both renal cortices is striated and heterogeneous in appearance raising the p ossibility of bilateral acute tubular necrosis or pyelonephritis. 2. 1 cm nonobstructive left renal calculus. Signer Name: Ben Marquez MD Signed: 07/17/2019 11:53 AM Workstation Name: [facility] [employer]
[2019-07-17] MEDS: INSULIN GLARGINE 100 UNITS/ML SUB-Q SCH (21:50)
[2019-07-17] MEDS: PRAVASTATIN 20 MG TAB PO SCH (21:53)
[2019-07-18] MEDS: IPRATROPIUM/ALBUTEROL SULFATE 3 ML AMPUL.NEB IH SCH ×3 (01:35→13:22)
[2019-07-18] MEDS: FAMOTIDINE 20 MG TAB PO SCH ×2 (01:50→09:26)
[2019-07-18] MEDS: SODIUM CHLORIDE 0.9% 1000 ML 1,000 ML IV SCH (03:33)
[2019-07-18] MEDS: methylPREDNISolone Sod Succinate 125 MG/2 ML INJ IV SCH ×2 (07:26→13:21)
--- NOTE | 2019-07-18 07:36 | Progress Note ---
Assessment and Plan Assessment and plan: Patient is a 49-year-old woman with a history of tobacco dependency, hypertension noncompliant with meds, diabetes, kidney stones, depression and brain surgery who presented to [facility] ED with chest pains, dyspnea on exertion, cough with thick sputum production, and right flank pain. Patient states that she was recently diagnosed with urinary tract infection and her PCP prescribed amoxicillin and she has completed treatment. However she continues to have of urinary frequency, occasional dysuria, and right flank pain. She has been taking [id number] AZO for treatment of her symptoms with minimal relief. She admits to being a chain smoker and having a chronic intermittent cough. Over the past week her cough has become more frequent with thick sputum production. She thinks that the cough is contributing to her chest pain. She is also experiencing dyspnea with exertion and wheezing. She denies history of COPD/asthma, or pulmonary workup. * pCXR IMPRESSION: No acute abnormality or significant change. * CTangio Chest IMPRESSION: No evidence of acute PTE. suspected Acute exacerbation COPD -New diagnosis -Scheduled DuoNebs and Pulmicort, and Albuterol PRN -IV Systemic steriods -Mucinex -On IV ABX -Will require outpatient follow-up with programs director for PFTs and COPD official dx Acute hypoxic respiratory failure -No Baseline home oxygen requirements -Currently off O2, pulse ox 93% room air -Monitor saturations -Monitor CO2 -Continue supplemental oxygen wean as tolerated Suspicion of Kidney stone -get CT a/p, reviewed, consulted Urology. -continue IV rocephin -Patient has history of kidney stone -Complains of right flank pain -Receiving IVF -Continue supportive care History of UTI -Previously treated with azithromycin as outpatient -UA negative -Urine culture pending -On IV abx HTN -Noncompliant with medications due to lack of insurance -Monitor BP -didn't Start Norvac 10mg because borderline bp, continue nss IVFs -IV hydralazine when necessary Lactic Acidosis -lactic acid on admission 2.10 -On IV ABX -Receiving IVF -Continue to monitor DM2 -With hyperglycemia -BG on admission 258 -HgbA1c 8.1 -SSI coverage and scheduled Lantus Tobacco abuse -Smokes 1-1.5 pack per day -Counseled for cessation 3-10 minutes done -Nicotine patch when necessary DVT PPX -on Lovenox D/c History Interval history: Patient was seen and examined. Follow-up on current diagnosis COPD vs Asthmatic bronchitis. No overnight events reported to me. Patient denies any nausea/vomiting or severe headaches. Imaging, nursing note, chart, labs and old chart reviewed. Discussed with patient. Hospitalist Physical - Physical exam Narrative exam: Gen: WDWN, NAD, Awake, Alert, Orientated HEENT: NCAT, EOMI, PERRL, OP Clear Neck: supple, no adenopathy, no thyromegaly, no JVD CVS/Heart: RRR, normal S1S2, pulses present bilaterally Chest/Lungs: diminished and exp wheezing bilateral, Symmetrical chest expansion, good air entry bilaterally GI/Abdomen: soft, NTND, good bowel sounds, no guarding or rebound /Bladder: no suprapubic tenderness, L CVA tenderness, no paraspinal tenderness Extermity/Skin: no c/c/e, no obvious rash MSK: FROM x 4 Neuro: CN 2-12 grossly intact, no new focal deficits Psych: calm - Constitutional Vitals: Temp Pulse Resp BP Pulse Ox 98.0 F 84 18 108/69 95 07/18/19 04:36 07/18/19 04:36 07/18/19 04:36 07/18/19 04:36 07/18/19 04:36 Results - Labs CBC & Chem 7: 07/17/19 07:11 07/17/19 07:11 Labs: Laboratory Last Values WBC 10.8 K/mm3 (4.5-11.0) 07/17/19 07:11 RBC 4.23 M/mm3 (3.65-5.03) 07/17/19 07:11 Hgb 12.5 gm/dl (10.1-14.3) 07/17/19 07:11 Hct 39.1 % (30.3-42.9) 07/17/19 07:11 MCV 93 fl (79-97) 07/17/19 07:11 MCH 30 pg (28-32) 07/17/19 07:11 MCHC 32 % (30-34) 07/17/19 07:11 RDW 12.9 % (13.2-15.2) L 07/17/19 07:11 Plt Count 342 K/mm3 (140-440) 07/17/19 07:11 Lymph % (Auto) 11.7 % (13.4-35.0) L 07/17/19 07:11 Mathews % (Auto) 0.7 % (0.0-7.3) 07/17/19 07:11 Eos % (Auto) 0.1 % (0.0-4.3) 07/17/19 07:11 Baso % (Auto) 0.3 % (0.0-1.8) 07/17/19 07:11 Lymph # 1.3 K/mm3 (1.2-5.4) 07/17/19 07:11 Mathews # 0.1 K/mm3 (0.0-0.8) 07/17/19 07:11 Eos # 0.0 K/mm3 (0.0-0.4) 07/17/19 07:11 Baso # 0.0 K/mm3 (0.0-0.1) 07/17/19 07:11 Seg Neutrophils % 87.2 % (40.0-70.0) H 07/17/19 07:11 Seg Neutrophils # 9.4 K/mm3 (1.8-7.7) H 07/17/19 07:11 PT 12.1 Sec. (12.2-14.9) L 07/16/19 16:38 INR 0.92 (0.87-1.13) 07/16/19 16:38 APTT 24.2 Sec. (24.2-36.6) 07/16/19 16:38 POC ABG pH 7.398 (7.35-7.45) 07/16/19 17:44 POC ABG pCO2 34.6 (35-45) L 07/16/19 17:44 POC ABG pO2 167 (80-105) H 07/16/19 17:44 POC ABG HCO3 21.3 (22-26 mml/L) 07/16/19 17:44 POC ABG Total CO2 22 (23-27mmol/L) 07/16/19 17:44 POC ABG O2 Sat 100 07/16/19 17:44 POC ABG Base Excess -3 ((-2) - (+3)mmol/L) 07/16/19 17:44 VBG pH 7.456 (7.320-7.420) H 07/16/19 16:38 FiO2 40 % 07/16/19 17:44 Sodium 133 mmol/L (137-145) L 07/17/19 07:11 Potassium 5.2 mmol/L (3.6-5.0) H 07/17/19 07:11 Chloride 98.8 mmol/L (98-107) 07/17/19 07:11 Carbon Dioxide 17 mmol/L (22-30) L 07/17/19 07:11 Anion Gap 22 mmol/L 07/17/19 07:11 BUN 24 mg/dL (7-17) H 07/17/19 07:11 Creatinine 0.8 mg/dL (0.7-1.2) 07/17/19 07:11 Estimated GFR > 60 ml/min 07/17/19 07:11 BUN/Creatinine Ratio 30 % 07/17/19 07:11 Glucose 378 mg/dL (65-100) H 07/17/19 07:11 POC Glucose 360 (70-105) H 07/17/19 21:27 Hemoglobin A1c 8.1 % (4-6) H 07/16/19 19:20 Lactic Acid 2.00 mmol/L (0.7-2.0) 07/17/19 07:11 Calcium 8.9 mg/dL (8.4-10.2) 07/17/19 07:11 Total Bilirubin 0.30 mg/dL (0.1-1.2) 07/16/19 16:38 Direct Bilirubin < 0.2 mg/dL (0-0.2) 07/16/19 16:38 Indirect Bilirubin 0.1 mg/dL 07/16/19 16:38 AST 11 units/L (5-40) 07/16/19 16:38 ALT 13 units/L (7-56) 07/16/19 16:38 Alkaline Phosphatase 143 units/L (35-129) H 07/16/19 16:38 Total Creatine Kinase 27 units/L (30-135) L 07/16/19 16:57 CK-MB (CK-2) 1.0 ng/mL (0.0-4.0) 07/16/19 16:57 CK-MB (CK-2) Rel Index 3.7 (0-4) 07/16/19 16:57 NT-Pro-B Natriuret Pep 11.03 pg/mL (0-900) 07/16/19 16:57 Total Protein 7.8 g/dL (6.3-8.2) 07/16/19 16:38 Albumin 4.4 g/dL (3.9-5) 07/16/19 16:38 Albumin/Globulin Ratio 1.3 % 07/16/19 16:38 Lipase 24 units/L (13-60) 07/16/19 16:38 Urine Color Mere (Yellow) 07/16/19 18:24 Urine Turbidity Clear (Clear) 07/16/19 18:24 Urine pH 5.0 (5.0-7.0) 07/16/19 18:24 Ur Specific [place] 1.014 (1.003-1.030) 07/16/19 18:24 Urine Protein 30 mg/dl mg/dL (Negative) 07/16/19 18:24 Urine Glucose (UA) Neg mg/dL (Negative) 07/16/19 18:24 Urine Ketones Neg mg/dL (Negative) 07/16/19 18:24 Urine Blood Sm (Negative) 07/16/19 18:24 Urine Nitrite Pos (Negative) 07/16/19 18:24 Urine Bilirubin Neg (Negative) 07/16/19 18:24 Urine Urobilinogen 4.0 mg/dL (<2.0) 07/16/19 18:24 Ur Leukocyte Esterase Neg (Negative) 07/16/19 18:24 Urine WBC (Auto) 4.0 /HPF (0.0-6.0) 07/16/19 18:24 Urine RBC (Auto) 4.0 /HPF (0.0-6.0) 07/16/19 18:24 U Epithel Cells (Auto) 3.0 /HPF (0-13.0) 07/16/19 18:24 Active Medications - Current Medications Current Medications: Generic Name Dose Route Start Last Admin Trade Name Freq PRN Reason Stop Dose Admin Acetaminophen 650 mg 07/16/19 18:21 Tylenol PO Q4H PRN Pain MILD(1-3)/Fever >100.5/TAVARES Albuterol 2.5 mg 07/16/19 18:21 Proventil IH Q3HRT PRN Shortness Of Breath Albuterol/Ipratropium 1 ampul 07/16/19 20:00 07/18/19 01:35 Duoneb *Not For Prn Use* IH 1 ampul Q6HRT [facility]SA[facility] Administration Aspirin 325 mg 07/16/19 20:00 07/17/19 09:59 Aspirin PO 325 mg QDAY [facility]SANA Administration Budesonide 0.5 mg 07/16/19 20:00 07/17/19 19:46 Pulmicort IH 0.5 mg Q12HRT [facility]SANA Administration Citalopram Hydrobromide 40 mg 07/17/19 10:00 07/17/19 09:49 Celexa PO 40 mg QDAY [facility]SA[facility] Administration Clonazepam 0.5 mg 07/16/19 18:28 Klonopin PO BID PRN Anxiety Dextrose 50 ml 07/16/19 18:25 D50w (25gm) Syringe IV PRN PRN Hypoglycemia Docusate Sodium 100 mg 07/16/19 22:00 07/17/19 21:53 Colace PO 100 mg BID [facility]SA[facility] Administration Enoxaparin Sodium 40 mg 07/17/19 10:00 07/17/19 09:51 Lovenox SUB-Q 40 mg QDAY [facility] Administration Famotidine 20 mg 07/18/19 01:00 07/18/19 01:50 Pepcid PO 20 mg BID [facility]SA[facility] Administration Guaifenesin 600 mg 07/16/19 22:00 07/17/19 21:53 Mucinex Er PO 600 mg BID [facility]SANA Administration Hydralazine HCl 10 mg 07/16/19 19:49 Apresoline IV Q4H PRN Blood Pressure Sodium Chloride 1,000 mls @ 100 mls/hr 07/16/19 19:00 07/18/19 03:33 Nacl 0.9% 1000 Ml IV 100 mls/hr DIRECT [facility] Administration Azithromycin 500 mg/ Sodium 250 mls @ 250 mls/hr 07/17/19 10:00 07/17/19 10:40 Chloride IV 07/20/19 09:59 250 mls/hr Q24HR [facility]SA[facility] Administration Protocol Ceftriaxone Sodium 1 gm in 50 mls @ 100 mls/hr 07/17/19 10:00 07/17/19 09:51 Rocephin/Ns 1 Gm/50 Ml IV 100 mls/hr Q24HR [facility] Administration Protocol Insulin Glargine 10 units 07/16/19 22:00 07/17/19 21:50 Lantus SUB-Q 10 units QHS [facility] Administration Insulin Human Lispro 0 unit 07/16/19 22:00 07/17/19 21:51 Humalog SUB-Q 8 unit ACHS [facility] Administration Protocol Methylprednisolone Sodium Succinate 60 mg 07/16/19 22:00 07/18/19 07:26 Solu-Medrol IV Not Given Q8HR [facility] Morphine Sulfate 2 mg 07/16/19 22:13 07/17/19 05:25 Morphine IV 2 mg Q4H PRN Administration Pain, Moderate (4-6) Nicotine 14 mg 07/16/19 19:00 07/17/19 09:51 Habitrol TD 14 mg QDAY [facility] Administration Ondansetron HCl 4 mg 07/16/19 18:21 07/16/19 19:35 Zofran IV 4 mg Q6H PRN Administration Nausea And Vomiting Oxycodone HCl 5 mg 07/16/19 18:50 07/17/19 23:34 Roxicodone PO 5 mg Q6H PRN Administration Pain , Severe (7-10) Oxycodone/Acetaminophen 1 tab 07/16/19 18:49 07/17/19 23:34 Percocet 5/325 PO 1 tab Q6H PRN Administration Pain , Severe (7-10) Pravastatin Sodium 20 mg 07/16/19 22:00 07/17/19 21:53 Pravachol PO 20 mg QHS [facility] Administration Sodium Chloride 10 ml 07/16/19 22:00 07/17/19 21:53 Sodium Chloride Flush Syringe 10 Ml IV 10 ml BID [facility] Administration Sodium Chloride 10 ml 07/16/19 18:21 Sodium Chloride Flush Syringe 10 Ml IV PRN PRN LINE FLUSH
[2019-07-18] MEDS: BUDESONIDE 0.5 MG/2 ML NEBU IH SCH (07:51)
[2019-07-18] MEDS: INSULIN LISPRO 100 UNIT/ML SUB-Q SCH ×2 (08:36→13:21)
[2019-07-18] MEDS: MORPHINE 2 MG/1 ML INJ IV PRN (08:36)
[2019-07-18] MEDS: AZITHROMYCIN 500 MG in SODIUM CHLORIDE 0.9% 250ML 250 ML IV SCH (09:21)
[2019-07-18] MEDS: cefTRIAXone/NS 1 GM/50 ML 1 GM/50 ML BAG IV SCH (09:21)
[2019-07-18] MEDS: guaiFENesin ER 600 MG TAB PO SCH (09:24)
[2019-07-18] MEDS: NICOTINE 14 MG/24 HR PATCH TD SCH (09:24)
[2019-07-18] MEDS: DOCUSATE SODIUM 100 MG CAP PO SCH (09:24)
[2019-07-18] MEDS: CITALOPRAM 20 MG TAB PO SCH (09:24)
[2019-07-18] MEDS: ASPIRIN 325 MG TAB PO SCH (09:24)
[2019-07-18] MEDS: ENOXAPARIN 40 MG/0.4 ML INJ SUB-Q SCH (09:25)
--- NOTE | 2019-07-18 09:33 | Consultation ---
History of Present Illness - Reason for Consult Consult date: 07/18/19 - History of Present Illness new to our service This is a 49-year-old female not previously diagnosed with COPD with no history of venous thromboembolism presented to the ED for bilateral posterior chest pain. She states that she went to her primary care physician who prescribed amoxicillin for a UTI. However, she describes the pain as being quite superior to the flank area in the bilateral lower thoracic region. She states that she has been coughing very chronically. She admits to dyspnea on exertion. She states that she works at [employer]. She states she has been working recently. She is a daily and heavy smoker. He does complain of some urinary frequency and she states which has gotten worse since she took the amoxicillin. She also states that she is a type II diabetic. The doctor did a Accu-Chek test which she reports to be less than 200 at the office last week. Left Flank pain & pain down her leg intermittently for years. PSHx - early -- spine surgery due to work related injury (Dr. Dom Nguyen) CTAP-- 1CM LEFT NON OBSTRUCTING STONE +DJD SPINE, LEFT INTERNAL FIXATION AT SI JOINT A/P COPD DJD spine with radiation 1CM LEFT NON OBSTRUCTING STONE -incidental Will need outpt ESWL for a 1cm stone no intervention need from at this time Past History Past Medical History: diabetes, hypertension (compliant with meds), hyperlipidemia, other (kidney stones, depression) Past Surgical History: Other (brain surgery( 1970)after trauma. sacral screw placed 2006) Social history: , Lives alone, smoking (chain smoker smokes 1-1.5 pack per day) Family history: other (mother COPD, father COPD) Medications and Allergies Allergies Allergy/AdvReac Type Severity Reaction Status Date / Time ciprofloxacin Allergy Unknown Verified 07/16/19 16:08 Sulfa (Sulfonamide Allergy Hives Verified 07/16/19 16:08 Antibiotics) Home Medications Medication Instructions Recorded Confirmed Last Taken Type Citalopram [Celexa] 40 mg PO QDAY 11/26/13 07/16/19 11/26/13 History Oxycodone HCl/Acetaminophen 10 mg PO PRN PRN 11/26/13 07/16/19 11/26/13 History [Percocet 10/325 mg] clonazePAM [KlonoPIN] 0.5 mg PO BID PRN 11/26/13 07/16/19 11/26/13 History Oxycodone HCl/Acetaminophen 1 each PO Q6HR PRN #20 tablet 03/25/15 07/16/19 Unknown Rx [Percocet 10-325 mg] Active Meds: Active Medications Acetaminophen (Tylenol) 650 mg PO Q4H PRN PRN Reason: Pain MILD(1-3)/Fever >100.5/TAVARSE Albuterol (Proventil) 2.5 mg IH Q3HRT PRN PRN Reason: Shortness Of Breath Albuterol/Ipratropium (Duoneb *Not For Prn Use*) 1 ampul IH Q6HRT [facility] Last Admin: 07/18/19 07:51 Dose: 1 ampul Documented by: Aspirin (Aspirin) 325 mg PO QDAY [facility] Last Admin: 07/18/19 09:24 Dose: 325 mg Documented by: Budesonide (Pulmicort) 0.5 mg IH Q12HRT [facility] Last Admin: 07/18/19 07:51 Dose: 0.5 mg Documented by: Citalopram Hydrobromide (Celexa) 40 mg PO QDAY [facility] Last Admin: 07/18/19 09:24 Dose: 40 mg Documented by: Clonazepam (Klonopin) 0.5 mg PO BID PRN PRN Reason: Anxiety Dextrose (D50w (25gm) Syringe) 50 ml IV PRN PRN PRN Reason: Hypoglycemia Docusate Sodium (Colace) 100 mg PO BID [facility] Last Admin: 07/18/19 09:24 Dose: 100 mg Documented by: Enoxaparin Sodium (Lovenox) 40 mg SUB-Q QDAY [facility] Last Admin: 07/18/19 09:25 Dose: 40 mg Documented by: Famotidine (Pepcid) 20 mg PO BID [facility] Last Admin: 07/18/19 09:26 Dose: 20 mg Documented by: Guaifenesin (Mucinex Er) 600 mg PO BID [facility] Last Admin: 07/18/19 09:24 Dose: 600 mg Documented by: Hydralazine HCl (Apresoline) 10 mg IV Q4H PRN PRN Reason: Blood Pressure Sodium Chloride (Nacl 0.9% 1000 Ml) 1,000 mls @ 100 mls/hr IV DIRECT [facility] Last Admin: 07/18/19 03:33 Dose: 100 mls/hr Documented by: Azithromycin 500 mg/ Sodium (Chloride) 250 mls @ 250 mls/hr IV Q24HR [facility]; Protocol Stop: 07/20/19 09:59 Last Admin: 07/18/19 09:21 Dose: 250 mls/hr Documented by: Ceftriaxone Sodium (Rocephin/Ns 1 Gm/50 Ml) 1 gm in 50 mls @ 100 mls/hr IV Q24HR [facility]; Protocol Last Admin: 07/18/19 09:21 Dose: 100 mls/hr Documented by: Insulin Glargine (Lantus) 10 units SUB-Q QHS [facility] Last Admin: 07/17/19 21:50 Dose: 10 units Documented by: Insulin Human Lispro (Humalog) 0 unit SUB-Q ACHS [facility]; Protocol Last Admin: 07/18/19 08:36 Dose: 4 unit Documented by: Methylprednisolone Sodium Succinate (Solu-Medrol) 60 mg IV Q8HR [facility] Last Admin: 07/18/19 07:26 Dose: Not Given Documented by: Morphine Sulfate (Morphine) 2 mg IV Q4H PRN PRN Reason: Pain, Moderate (4-6) Last Admin: 07/18/19 08:36 Dose: 2 mg Documented by: Nicotine (Habitrol) 14 mg TD QDAY [facility] Last Admin: 07/18/19 09:24 Dose: 14 mg Documented by: Ondansetron HCl (Zofran) 4 mg IV Q6H PRN PRN Reason: Nausea And Vomiting Last Admin: 07/16/19 19:35 Dose: 4 mg Documented by: Oxycodone HCl (Roxicodone) 5 mg PO Q6H PRN PRN Reason: Pain , Severe (7-10) Last Admin: 07/17/19 23:34 Dose: 5 mg Documented by: Oxycodone/Acetaminophen (Percocet 5/325) 1 tab PO Q6H PRN PRN Reason: Pain , Severe (7-10) Last Admin: 07/17/19 23:34 Dose: 1 tab Documented by: Pravastatin Sodium (Pravachol) 20 mg PO QHS [facility] Last Admin: 07/17/19 21:53 Dose: 20 mg Documented by: Sodium Chloride (Sodium Chloride Flush Syringe 10 Ml) 10 ml IV BID [facility] Last Admin: 07/17/19 21:53 Dose: 10 ml Documented by: Sodium Chloride (Sodium Chloride Flush Syringe 10 Ml) 10 ml IV PRN PRN PRN Reason: LINE FLUSH Exam - Constitutional Vitals: Temp Pulse Resp BP Pulse Ox 98.0 F 88 19 108/69 95 07/18/19 04:36 07/18/19 07:51 07/18/19 07:51 07/18/19 04:36 07/18/19 07:52 Results - Labs CBC & Chem 7: 07/17/19 07:11 07/17/19 07:11 Labs: Abnormal lab results 07/17/19 07/17/19 07/17/19 Range/Units 11:20 16:51 21:27 POC Glucose 380 H 303 H 360 H (70-105) 07/18/19 Range/Units 08:06 POC Glucose 295 H (70-105)
--- NOTE | 2019-07-18 11:47 | Discharge Summary ---
Providers - Providers Date of Admission: 07/16/19 18:21 Date of discharge: 07/18/19 Attending physician: MATT WELLS 07/16/19 19:27 Consult to Case Management [CONS] Routine Services Needed at Discharge: Fish Protector Notified:: will be seen by case management 07/18/19 07:33 Consult to Physician [CONS] Routine Comment: Consulting Provider: JOSE MCCARTY Physician Instructions: I notified Reason For Exam: 1 cm left kidney stone with pyelo Primary care physician: LEIGH GARCIA Hospitalization Condition: Stable Hospital course: Patient is a 49-year-old woman with a history of tobacco dependency, hypertension noncompliant with meds, diabetes, kidney stones, depression and brain surgery who presented to [facility] ED with chest pains, dyspnea on exertion, cough with thick sputum production, and right flank pain. Patient states that she was recently diagnosed with urinary tract infection and her PCP prescribed amoxicillin and she has completed treatment. However she continues to have of urinary frequency, occasional dysuria, and left flank pains. She has been taking [id number] AZO for treatment of her symptoms with minimal relief. She admits to being a chain smoker and having a chronic intermittent cough. Over the past week her cough has become more frequent with thick sputum production. She thinks that the cough is contributing to her chest pain. She is also experiencing dyspnea with exertion and wheezing. She denies history of COPD/asthma, or pulmonary workup. * pCXR IMPRESSION: No acute abnormality or significant change. * CTangio Chest IMPRESSION: No evidence of acute PTE. 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 for PFTs and COPD official dx Acute hypoxic respiratory failure -No Baseline home oxygen requirements -Currently off O2, pulse ox 93% room air -Monitor saturations -Monitor CO2 -Continue supplemental oxygen wean as tolerated Left Nephrolithiasis -get CT a/p, reviewed, consulted Urology, input noted, 1 cm left renal stone unlikely to pass, will need oupatient ESWL -continue IV rocephin -Patient has history of kidney stone -Complains of right flank pain -Receiving IVF -Continue supportive care History of UTI -Previously treated with azithromycin as outpatient -UA negative -Urine culture pending -On IV abx HTN -Noncompliant with medications due to lack of insurance -Monitor BP -didn't Start Norvac 10mg because borderline bp, continue nss IVFs -IV hydralazine when necessary Lactic Acidosis -lactic acid on admission 2.10 -On IV ABX -Receiving IVF -Continue to monitor DM2 -With hyperglycemia -BG on admission 258 -HgbA1c 8.1 -SSI coverage and scheduled Lantus Tobacco abuse -Smokes 1-1.5 pack per day -Counseled for cessation 3-10 minutes done -Nicotine patch when necessary DVT PPX -on Lovenox Disposition: DC-01 TO HOME OR SELFCARE Time spent for discharge: 35 minutes Core Measure Documentation - Palliative Care Palliative Care/ Comfort Measures: Not Applicable - Core Measures Any of the following diagnoses?: none - VTE Discharge Requirements Deep Vein Thrombosis/Pulmonary Embolism Present on Admission: No Has pt received <5 days of overlap therapy or INR<2.0: No Anticoagulant overlap therapy prescribed at discharge: No Contraindication No Overlap Therapy order at DC: Not Indicated Exam - Physical Exam Narrative exam: Gen: WDWN, NAD, Awake, Alert, Orientated HEENT: NCAT, EOMI, PERRL, OP Clear Neck: supple, no adenopathy, no thyromegaly, no JVD CVS/Heart: RRR, normal S1S2, pulses present bilaterally Chest/Lungs: diminished and exp wheezing bilateral, Symmetrical chest expansion, good air entry bilaterally GI/Abdomen: soft, NTND, good bowel sounds, no guarding or rebound /Bladder: no suprapubic tenderness, L CVA tenderness, no paraspinal tenderness Extermity/Skin: no c/c/e, no obvious rash MSK: FROM x 4 Neuro: CN 2-12 grossly intact, no new focal deficits Psych: calm - Constitutional Vitals: Temp Pulse Resp BP Pulse Ox 98.0 F 88 19 108/69 95 07/18/19 04:36 07/18/19 07:51 07/18/19 07:51 07/18/19 04:36 07/18/19 07:52 Plan Activity: other (no strenous activity unless cleared by PCP) Diet: low salt, diabetic Special Instructions: record daily BP diary, record blood sugar diary (with meals) Follow up with: DIPTI SHEARER MD [Referring] - 3-5 Days JOSE MCCARTY MD [Staff Physician] - 7 Days Forms: Work/School Release Form Prescriptions: Amoxicillin/Potassium Clav [Augmentin 875-125 Tablet] 1 each PO BID #5 tablet Nicotine [Habitrol] 14 mg TD QDAY #7 patch methylPREDNISolone [Medrol 4MG DOSEPAK (21 tabs)] 1 dose PO DAILY #1 tab.ds.pk Insulin NPH/Regular [Novolin 70/30] 10 unit SQ BIDDIAB #1 mo Oxycodone HCl/Acetaminophen [Percocet 10/325 mg] 1 each PO Q6HR PRN #20 tablet PRN Reason: Pain , Severe (7-10) ALBUTEROL Inhaler (OR & NICU) [ProAir HFA Inhaler] 2 puff IH QID PRN #1 inhalation PRN Reason: Shortness Of Breath ALBUTEROL NEB's [Proventil 0.083% NEBS] 2.5 mg IH Q3HRT PRN #15 nebu PRN Reason: Shortness Of Breath
[2019-07-18 12:23] VITALS: BP 96/49
[2019-07-18] MEDS: oxyCODONE 5 MG TAB PO PRN (13:29)
[2019-07-18] MEDS: oxyCODONE /ACETAMINOPHEN 5-325MG TAB PO PRN (13:29)
== END 2019-07-18 15:30 | disposition home or self-care (01) | DRG 189 ==
LOC: ED 15:53 → 3A 18:21
PROVIDERS: ADMIT Internal Medicine; ATTEND Internal Medicine
PROC: 4A033R1 Measurement of Arterial Saturation, Peripheral, Percutaneous Approach (ICD-10-PCS; principal; 2019-07-16)
DX: J96.21 Acute and chronic respiratory failure with hypoxia (principal); J44.1 Chronic obstructive pulmonary disease with (acute) exacerbation; N39.0 Urinary tract infection, site not specified; E87.2 Acidosis; I10 Essential (primary) hypertension; F32.9 Major depressive disorder, single episode, unspecified; F17.210 Nicotine dependence, cigarettes, uncomplicated; E78.5 Hyperlipidemia, unspecified; N20.0 Calculus of kidney; E11.65 Type 2 diabetes mellitus with hyperglycemia; Z91.14 Patient's other noncompliance with medication regimen
CPT/HCPCS: 31500; 31720; 36415; 71045; 71275; 74176; 80048; 80076; 81001; 82140; 82550; 82553; 82803; 82805; 82962; 83036; 83690; 83880; 85025; 85610; 85730; 87040; 87086; 93005; 93010; 94640; 94644; 94760; 96374; 96375; 99406; G0378; A9270-GY; J0456; J0696; J1650; J1815; J2270; J2405; J2930; J7030; J7050; Q9967

== ENCOUNTER 2019-11-25 13:17 | Emergency (ER) | payer SELFPAY ==
[2019-11-25 14:10] VITALS: BP 140/96
--- NOTE | 2019-11-25 14:13 | Emergency Department Report ---
ED Extremity Problem HPI - General Chief complaint: Extremity Problem,Nontraumatic Stated complaint: LFT TOE INFECTED/RT TOE NAIL PAIN Source: patient Mode of arrival: Ambulatory Limitations: No Limitations - History of Present Illness Initial comments: increased pain and swelling around the nail of the L 2nd toe. no fever. Mild nause from the metformin she taking. non compliant with meds dispite having them. MD Complaint: extremity pain, extremity swelling Severity scale (0 -10): 6 - Related Data Home Medications Medication Instructions Recorded Confirmed Last Taken Citalopram [Celexa] 40 mg PO QDAY 11/26/13 07/16/19 11/26/13 clonazePAM [KlonoPIN] 0.5 mg PO BID PRN 11/26/13 07/16/19 11/26/13 Previous Rx's Medication Instructions Recorded Last Taken Type ALBUTEROL NEB's [Proventil 0.083% 2.5 mg IH Q3HRT PRN #15 nebu 07/18/19 Unknown Rx NEBS] Acetaminophen [Acetaminophen TAB] 1 tab PO Q4H PRN #15 tablet 07/18/19 Unknown Rx Albuterol INH(or & Nicu Only) 2 puff IH QID PRN #1 inhalation 07/18/19 Unknown Rx [ProAir HFA Inhaler] Amoxicillin/Potassium Clav 1 each PO BID #5 tablet 07/18/19 Unknown Rx [Augmentin 875-125 Tablet] Famotidine [Pepcid] 20 mg PO BID tablet 07/18/19 Unknown Rx Insulin NPH/Regular [Novolin 70/30] 10 unit SQ BIDDIAB #1 mo 07/18/19 Unknown Rx Nicotine [Habitrol] 14 mg TD QDAY #7 patch 07/18/19 Unknown Rx Oxycodone HCl/Acetaminophen 1 each PO Q6HR PRN #20 tablet 07/18/19 Unknown Rx [Percocet 10/325 mg] Pravastatin [Pravachol] 20 mg PO QHS tablet 07/18/19 Unknown Rx guaiFENesin ER [Mucinex ER] 600 mg PO BID #14 tablet 07/18/19 Unknown Rx methylPREDNISolone [Medrol 4MG 1 dose PO DAILY #1 tab.ds.pk 07/18/19 Unknown Rx DOSEPAK (21 tabs)] Clindamycin [Clindamycin CAP] 300 mg PO Q8H #21 cap 11/25/19 Unknown Rx Ibuprofen [Motrin 800 MG tab] 800 mg PO Q8HR PRN #10 tablet 11/25/19 Unknown Rx Allergies Allergy/AdvReac Type Severity Reaction Status Date / Time ciprofloxacin Allergy Unknown Verified 07/16/19 16:08 Sulfa (Sulfonamide Allergy Hives Verified 07/16/19 16:08 Antibiotics) ED Review of Systems ROS: Stated complaint: LFT TOE INFECTED/RT TOE NAIL PAIN Other details as noted in HPI Comment: All other systems reviewed and negative ED Past Medical Hx - Past Medical History Previous Medical History?: Yes Hx Hypertension: Yes Hx Heart Attack/AMI: No Hx Congestive Heart Failure: No Hx Diabetes: Yes Hx Deep Vein Thrombosis: No Hx Pulmonary Embolism: No Hx Liver Disease: No Hx Arthritis: No Hx Seizures: Yes ( 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 sacral screw placed 2006 - Social History Smoking Status: Current Every Day Smoker - Medications Home Medications: Home Medications Medication Instructions Recorded Confirmed Last Taken Type Citalopram [Celexa] 40 mg PO QDAY 11/26/13 07/16/19 11/26/13 History clonazePAM [KlonoPIN] 0.5 mg PO BID PRN 11/26/13 07/16/19 11/26/13 History ALBUTEROL NEB's [Proventil 0.083% 2.5 mg IH Q3HRT PRN #15 nebu 07/18/19 Unknown Rx NEBS] Acetaminophen [Acetaminophen TAB] 1 tab PO Q4H PRN #15 tablet 07/18/19 Unknown Rx Albuterol INH(or & Nicu Only) 2 puff IH QID PRN #1 inhalation 07/18/19 Unknown Rx [ProAir HFA Inhaler] Amoxicillin/Potassium Clav 1 each PO BID #5 tablet 07/18/19 Unknown Rx [Augmentin 875-125 Tablet] Famotidine [Pepcid] 20 mg PO BID tablet 07/18/19 Unknown Rx Insulin NPH/Regular [Novolin 70/30] 10 unit SQ BIDDIAB #1 mo 07/18/19 Unknown Rx Nicotine [Habitrol] 14 mg TD QDAY #7 patch 07/18/19 Unknown Rx Oxycodone HCl/Acetaminophen 1 each PO Q6HR PRN #20 tablet 07/18/19 Unknown Rx [Percocet 10/325 mg] Pravastatin [Pravachol] 20 mg PO QHS tablet 07/18/19 Unknown Rx guaiFENesin ER [Mucinex ER] 600 mg PO BID #14 tablet 07/18/19 Unknown Rx methylPREDNISolone [Medrol 4MG 1 dose PO DAILY #1 tab.ds.pk 07/18/19 Unknown Rx DOSEPAK (21 tabs)] Clindamycin [Clindamycin CAP] 300 mg PO Q8H #21 cap 11/25/19 Unknown Rx Ibuprofen [Motrin 800 MG tab] 800 mg PO Q8HR PRN #10 tablet 11/25/19 Unknown Rx ED Physical Exam - General Limitations: No Limitations General appearance: alert, in no apparent distress - Head Head exam: Present: atraumatic, normocephalic - Eye Eye exam: Present: normal appearance, PERRL, EOMI - ENT ENT exam: Present: mucous membranes moist - Neck Neck exam: Present: normal inspection - Respiratory Respiratory exam: Present: normal lung sounds bilaterally. Absent: respiratory distress, wheezes, rales, rhonchi - Cardiovascular Cardiovascular Exam: Present: regular rate, normal rhythm. Absent: systolic murmur, diastolic murmur, rubs, gallop - GI/Abdominal GI/Abdominal exam: Present: soft, normal bowel sounds - Extremities Exam Extremities exam: Present: normal inspection - Expanded Lower Extremity Exam Left Foot/Toe exam: Present: tenderness (small area of fluctuance just adjacent to the 2nd toe nail on left. mild erythema), swelling - Back Exam Back exam: Present: normal inspection - Neurological Exam Neurological exam: Present: alert, oriented X3 - Psychiatric Psychiatric exam: Present: normal affect, normal mood - Skin Skin exam: Present: warm, dry, intact, normal color. Absent: rash ED Medical Decision Making - Lab Data Accucheck 309 Critical care attestation.: If time is entered above; I have spent that time in minutes in the direct care of this critically ill patient, excluding procedure time. ED Disposition Clinical Impression: Paronychia Cellulitis of toe Qualifiers: Laterality: left Qualified Code(s): L03.032 - Cellulitis of left toe Disposition: DC- TO HOME OR SELFCARE Is pt being admited?: No Does the pt Need Aspirin: No Condition: Stable Instructions: Paronychia (ED) Referrals: ROBIN GUAN DPM [Staff Physician] - 3-5 Days Time of Disposition: 14:15
== END 2019-11-25 14:15 | disposition home or self-care (01) ==
LOC: ED 13:17
DX: L03.032 Cellulitis of left toe (principal); I10 Essential (primary) hypertension; E11.9 Type 2 diabetes mellitus without complications; F32.9 Major depressive disorder, single episode, unspecified; J44.9 Chronic obstructive pulmonary disease, unspecified; F17.200 Nicotine dependence, unspecified, uncomplicated
CPT/HCPCS: 82962; 99282

== ENCOUNTER 2021-03-05 08:28 | Emergency (ER) | payer SELFPAY ==
[2021-03-05] MEDS ORDERED: KETOROLAC 30 MG/1 ML INJ IV ONE (11:25)
[2021-03-05] MEDS ORDERED: ONDANSETRON 4 MG/2 ML INJ IV ONE (11:25)
[2021-03-05] MEDS ORDERED: SODIUM CHLORIDE 0.9% 1000 ML 1,000 ML IV ONE (11:25)
--- NOTE | 2021-03-05 11:26 | Event Note ---
ED Screening Note Date of service: 03/05/21 Time: 11:21 ED Screening Note: 50 y o f with hx of UTI and left kidney stone complaining of left flank pain Nausea vomiting. States been on ciprofloxacin for 3 weeks with no relief of UTI. This initial assessment/diagnostic orders/clinical plan/treatment(s) is/are subject to change based on patients health status, clinical progression and re- assessment by fellow clinical providers in the ED. Further treatment and workup at subsequent clinical providers discretion. Patient/guardian urged not to elope from the ED as their condition may be serious if not clinically assessed and managed. Initial orders include: Labs ordered.
--- NOTE | 2021-03-05 12:10 | Cat Scan Report ---
CT ABDOMEN AND PELVIS WITHOUT CONTRAST HISTORY: flank pain. COMPARISON: 04/18/2020 TECHNIQUE: CT images of the abdomen and pelvis were obtained without administration of intravenous co ntrast. All CT scans at this location are performed using CT dose reduction for ALARA by means of au tomated exposure control. FINDINGS: Lungs/bones: Lung bases are clear Abdomen/pelvis: Within limits of a noncontrast exam the liver, spleen, pancreas, gallbladder and upp er GI tract appear normal. There is thickening of bilateral adrenal glands. There is a large ovoid calculus measuring 1.6 x 0.7 cm within left renal pelvis with mild dilatation left renal pelvis and calyces. Tiny punctate calcification in the left kidney calyx is noted as well. Left ureter is normal throughout its course without calcification. The visualized bowel loops appear normal. No bowel obstruction. No free fluid is seen in the abdomen or pelvis. No acute bone findings . On coronal images a calcification left renal pelvis measures 1.7 x 1.6 cm. Right kidney and ureter appear normal. IMPRESSION: 1. Large calculus in left renal pelvis is increased in size since prior examination and now measures 1.7 x 1.6 cm in left renal pelvis. Tiny nonobstructing left calyceal stone is also seen. No significa nt hydronephrosis at this time. Signer Name: Carlos Madden MD Signed: 03/05/2021 12:03 PM Workstation Name: [id number]
[2021-03-05 12:40] LABS: Basophils # (Auto) 0.1 K/mm3 (0.0-0.1); Basophils % (Auto) 0.7 % (0.0-1.8); Eosinophils # (Auto) 0.4 K/mm3 (0.0-0.4); Eosinophils % (Auto) 3.8 % (0.0-4.3); Hematocrit 39.3 % (30.3-42.9); Hemoglobin 13.3 gm/dl (10.1-14.3); Lymphocytes % (Auto) 27.7 % (13.4-35.0); Mean Corpuscular HGB Conc 34 % (30-34); Mean Corpuscular Volume 91 fl (79-97); Monocytes # (Auto) 0.4 K/mm3 (0.0-0.8); Monocytes % (Auto) 4.2 % (0.0-7.3); Platelet Count 264 K/mm3 (140-440); Red Blood Count 4.34 M/mm3 (3.65-5.03); Red Cell Distribution Width 12.6 % (13.2-15.2)
[2021-03-05 12:55] LABS: Alanine Aminotransferase 12 units/L (7-56); Albumin 3.9 g/dL (3.9-5); Blood Urea Nitrogen 11 mg/dL (7-17); Calcium 8.5 mg/dL (8.4-10.2); Hemolysis Index 1
[2021-03-05 12:56] LABS: BUN/Creatinine Ratio 18
[2021-03-05] MEDS ORDERED: MORPHINE 4 MG/1 ML INJ IV ONE ×2 (13:11→13:31)
[2021-03-05 14:20] LABS: Bilirubin,Urine NEG (Negative); Blood,Urine LG (Negative); Color,Urine Yellow (Yellow); Mucus,Urine 2+ /HPF
[2021-03-05 14:22] LABS: RBC,Urine > 182.0 /HPF (0.0-6.0)
[2021-03-05 14:24] LABS: HCG Qualitative,Urine Negative (Negative)
[2021-03-05] MEDS ORDERED: cefTRIAXone/NS 1 GM/50 ML 1 GM/50 ML BAG IV ONE (14:28)
--- NOTE | 2021-03-05 15:08 | Emergency Department Report ---
ED Abdominal Pain HPI - General Chief Complaint: Abdominal Pain Stated Complaint: KIDNEY STONES, INFECTION PUI?: No Time Seen by Provider: 03/05/21 11:38 Source: patient Mode of arrival: Wheelchair Limitations: No Limitations - History of Present Illness Initial Comments: This is a 50-year-old female with a history of recurrent UTI and a history of left renal stone who presents complaining of left-sided flank pain for about a w jena. Patient states that she been taking ciprofloxacin on and off for the past 3 months with no relief. Patient states she still has dysuria and thinks that she may have an infection. She denies fever/chills/chest pain/shortness of breath/headache/vomiting or diarrhea. MD Complaint: abdominal pain, flank pain Location: L flank Severity: severe Severity scale (0 -10): 10 - Related Data Home Medications Medication Instructions Recorded Confirmed Last Taken Citalopram [Celexa] 40 mg PO QDAY 11/26/13 07/16/19 11/26/13 clonazePAM [KlonoPIN] 0.5 mg PO BID PRN 11/26/13 07/16/19 11/26/13 Previous Rx's Medication Instructions Recorded Last Taken Type ALBUTEROL NEB's [Proventil 0.083% 2.5 mg IH Q3HRT PRN #15 nebu 07/18/19 Unknown Rx NEBS] Acetaminophen [Acetaminophen TAB] 1 tab PO Q4H PRN #15 tablet 07/18/19 Unknown Rx Albuterol Mdi (or & Nicu Only) 2 puff IH QID PRN #1 inhalation 07/18/19 Unknown Rx [ProAir HFA Inhaler] Amoxicillin/Potassium Clav 1 each PO BID #5 tablet 07/18/19 Unknown Rx [Augmentin 875-125 Tablet] Famotidine [Pepcid] 20 mg PO BID tablet 07/18/19 Unknown Rx Insulin NPH/Regular [Novolin 70/30] 10 unit SQ BIDDIAB #1 mo 07/18/19 Unknown Rx Nicotine [Habitrol] 14 mg TD QDAY #7 patch 07/18/19 Unknown Rx Oxycodone HCl/Acetaminophen 1 each PO Q6HR PRN #20 tablet 07/18/19 Unknown Rx [Percocet 10/325 mg] Pravastatin [Pravachol] 20 mg PO QHS tablet 07/18/19 Unknown Rx guaiFENesin ER [Mucinex ER] 600 mg PO BID #14 tablet 07/18/19 Unknown Rx methylPREDNISolone [Medrol 4MG 1 dose PO DAILY #1 tab.ds.pk 07/18/19 Unknown Rx DOSEPAK (21 tabs)] Clindamycin [Clindamycin CAP] 300 mg PO Q8H #21 cap 11/25/19 Unknown Rx Acetaminophen/Codeine [Tylenol #3] 1 tab PO Q6H PRN #15 tab 04/18/20 Unknown Rx Nitrofurantoin Craig/M-Cryst 100 mg PO Q12HR #20 capsule 04/18/20 Unknown Rx [Macrobid CAP] HYDROcodone/APAP 7.5-325 [[place] 1 each PO Q8HR #12 tablet 03/05/21 Unknown Rx 7.5/325] Ibuprofen [Motrin 800 MG tab] 800 mg PO Q8HR PRN #10 tablet 03/05/21 Unknown Rx Tamsulosin [Flomax] 0.4 mg PO QDAY #10 cap 03/05/21 Unknown Rx Allergies Allergy/AdvReac Type Severity Reaction Status Date / Time ciprofloxacin Allergy Unknown Verified 07/16/19 16:08 Sulfa (Sulfonamide Allergy Hives Verified 07/16/19 16:08 Antibiotics) ED Review of Systems ROS: Stated complaint: KIDNEY STONES, INFECTION Other details as noted in HPI Comment: All other systems reviewed and negative ED Past Medical Hx - Past Medical History Previous Medical History?: Yes Hx Hypertension: Yes Hx Heart Attack/AMI: No Hx Congestive Heart Failure: No Hx Diabetes: Yes Hx Deep Vein Thrombosis: No Hx Pulmonary Embolism: No Hx Liver Disease: No Hx Arthritis: No Hx Seizures: Yes ( 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 sacral screw placed 2006 - Social History Smoking Status: Current Every Day Smoker Substance Use Type: None - Medications Home Medications: Home Medications Medication Instructions Recorded Confirmed Last Taken Type Citalopram [Celexa] 40 mg PO QDAY 11/26/13 07/16/19 11/26/13 History clonazePAM [KlonoPIN] 0.5 mg PO BID PRN 11/26/13 07/16/19 11/26/13 History ALBUTEROL NEB's [Proventil 0.083% 2.5 mg IH Q3HRT PRN #15 nebu 07/18/19 Unknown Rx NEBS] Acetaminophen [Acetaminophen TAB] 1 tab PO Q4H PRN #15 tablet 07/18/19 Unknown Rx Albuterol Mdi (or & Nicu Only) 2 puff IH QID PRN #1 inhalation 07/18/19 Unknown Rx [ProAir HFA Inhaler] Amoxicillin/Potassium Clav 1 each PO BID #5 tablet 07/18/19 Unknown Rx [Augmentin 875-125 Tablet] Famotidine [Pepcid] 20 mg PO BID tablet 07/18/19 Unknown Rx Insulin NPH/Regular [Novolin 70/30] 10 unit SQ BIDDIAB #1 mo 07/18/19 Unknown Rx Nicotine [Habitrol] 14 mg TD QDAY #7 patch 07/18/19 Unknown Rx Oxycodone HCl/Acetaminophen 1 each PO Q6HR PRN #20 tablet 07/18/19 Unknown Rx [Percocet 10/325 mg] Pravastatin [Pravachol] 20 mg PO QHS tablet 07/18/19 Unknown Rx guaiFENesin ER [Mucinex ER] 600 mg PO BID #14 tablet 07/18/19 Unknown Rx methylPREDNISolone [Medrol 4MG 1 dose PO DAILY #1 tab.ds.pk 07/18/19 Unknown Rx DOSEPAK (21 tabs)] Clindamycin [Clindamycin CAP] 300 mg PO Q8H #21 cap 11/25/19 Unknown Rx Acetaminophen/Codeine [Tylenol #3] 1 tab PO Q6H PRN #15 tab 04/18/20 Unknown Rx Nitrofurantoin Craig/M-Cryst 100 mg PO Q12HR #20 capsule 04/18/20 Unknown Rx [Macrobid CAP] HYDROcodone/APAP 7.5-325 [[place] 1 each PO Q8HR #12 tablet 03/05/21 Unknown Rx 7.5/325] Ibuprofen [Motrin 800 MG tab] 800 mg PO Q8HR PRN #10 tablet 03/05/21 Unknown Rx Tamsulosin [Flomax] 0.4 mg PO QDAY #10 cap 03/05/21 Unknown Rx ED Physical Exam - General Limitations: No Limitations General appearance: alert, in no apparent distress - Head Head exam: Present: atraumatic, normocephalic - Eye Eye exam: Present: normal appearance - ENT ENT exam: Present: mucous membranes moist - Neck Neck exam: Present: normal inspection - Respiratory Respiratory exam: Present: normal lung sounds bilaterally. Absent: respiratory distress - Cardiovascular Cardiovascular Exam: Present: regular rate, normal rhythm. Absent: systolic murmur, diastolic murmur, rubs, gallop - GI/Abdominal GI/Abdominal exam: Present: soft, normal bowel sounds. Absent: distended, tende rness, guarding - Extremities Exam Extremities exam: Present: normal inspection, full ROM - Back Exam Back exam: Present: normal inspection, full ROM, tenderness, CVA tenderness (L). Absent: CVA tenderness (R), paraspinal tenderness - Neurological Exam Neurological exam: Present: alert, oriented X3, CN II-XII intact, normal gait - Psychiatric Psychiatric exam: Present: normal affect, normal mood - Skin Skin exam: Present: warm, dry, intact, normal color. Absent: rash ED Course Vital Signs 03/05/21 03/05/21 03/05/21 08:37 12:33 13:03 Temperature 98.3 F Pulse Rate 87 Respiratory 20 18 18 Rate Blood Pressure 151/91 O2 Sat by Pulse 99 Oximetry 03/05/21 03/05/21 13:31 14:01 Temperature Pulse Rate Respiratory 18 18 Rate Blood Pressure O2 Sat by Pulse Oximetry ED Medical Decision Making - Lab Data Result diagrams: 03/05/21 12:00 03/05/21 12:00 - Medical Decision Making This 50-year-old female presents with left flank pain secondary to kidney stone. Discussed follow-up with urology. Patient's pain was resolved in the ED. All labs are within normal limits. Discussed follow-up with primary care physician as well. Patient was in no acute distress states she will follow-up. At this time patient is in no respiratory distress improved discharged home. Critical care attestation.: If time is entered above; I have spent that time in minutes in the direct care o f this critically ill patient, excluding procedure time. ED Disposition Clinical Impression: Nephrolithiasis, Hyperglycemia Disposition: DC-01 TO HOME OR SELFCARE Is pt being admited?: No Does the pt Need Aspirin: No Condition: Stable Instructions: Abdominal Pain (ED), Kidney Stones, [id number], Low-Purine Eating Plan Additional Instructions: Make sure to follow up with the primary care physician as discussed. Take all your medications as you've been prescribed. If you have any worsening symptoms or develop new symptoms please return to ED immediately. Prescriptions: Tamsulosin [Flomax] 0.4 mg PO QDAY #10 cap Ibuprofen [Motrin 800 MG tab] 800 mg PO Q8HR PRN #10 tablet PRN Reason: Pain , Severe (7-10) HYDROcodone/APAP 7.5-325 [[place] 7.5/325] 1 each PO Q8HR #12 tablet Referrals: LEIGH GARCIA MD [Primary Care Provider] - 3-5 Days [facility] [Provider Group] - 3-5 Days Forms: Work/School Release Form(ED) Time of Disposition: 15:30
[2021-03-05] MEDS ORDERED: HYDROmorphone 2 MG/1 ML INJ IV ONE (15:18)
[2021-03-05] MEDS ORDERED: HYDROmorphone 1 MG/1 ML INJ IV ONE (15:20)
[2021-03-05 16:08] VITALS: BP 171/83
== END 2021-03-05 16:11 | disposition home or self-care (01) ==
LOC: ED 08:28
DX: N20.0 Calculus of kidney (principal); E11.65 Type 2 diabetes mellitus with hyperglycemia; F32.9 Major depressive disorder, single episode, unspecified; Z86.69 Personal history of other diseases of the nervous system and sense organs; F17.200 Nicotine dependence, unspecified, uncomplicated; Z98.890 Other specified postprocedural states; Z88.2 Allergy status to sulfonamides; Z88.1 Allergy status to other antibiotic agents; Z79.4 Long term (current) use of insulin; Z79.899 Other long term (current) drug therapy
CPT/HCPCS: 36415; 74176; 80053; 81001; 81025; 83690; 85025; 87086; 96361; 96365; 96375; 99284; J0696; J1170; J1885; J2270; J2405; J7030